=== PATIENT | male | born 1955 | race Caucasian/White ===

== ENCOUNTER 2016-10-08 04:12 | Emergency (ER) | payer BC ==
[2016-10-08 04:21] VITALS: TEMP 98
[2016-10-08] MEDS ORDERED: ORPHENADRINE 30 MG/ML 2 ML VIAL IVP STA (05:11)
--- NOTE | 2016-10-08 05:19 | ED ---
Back Pain HPI - General Chief Complaint: Back Pain/Injury Stated Complaint: Back Pain Time Seen by Provider: 10/08/16 05:09 Source: patient, EMS, RN notes reviewed Limitations: no limitations - History of Present Illness Initial Comments: Patient is a 52-year-old male presenting to the with chief complaint of lower back spasm. He arrives via EMS. They started a IV line on but did not give him any pain medication. He reports that he occur and last night when he was going from sitting to standing position. He states that he took some Motrin at home lasting in a somewhat subsided. He states he was able to rest comfortably. He states that the pain did not seem to bother him much today however when he went to bed and decided to get up to use the bathroom he stood up and had a twinge over his right side. He denies any pain radiate down his legs. He states that the pain feels better when he is laying flat. He states that he has chronic back pain and this is been going on for about 8 years. He follows up with Dr. Mensah. He states he's got an MRI scheduled for his lumbar spine in the somewhat near future. He denies any saddle anesthesias or peripheral paresthesias. He denies the pain radiating down his legs. He states the pain is positional and worse with lateral flexion of the right lumbar spine. Patient denies any recent fever or chills.Patient denies any recent fever, chills, shortness of breath, chest pain, abdominal pain, nausea vomiting, numbness or tingling, dysuria or hematuria, constipation or diarrhea, headaches or visual changes, or any other current symptoms - Related Data Home Medications Medication Instructions Recorded Confirmed Albuterol Inhaler [Ventolin Hfa 2 puff INHALATION RT-Q4H PRN 10/08/16 10/08/16 Inhaler] Budesonide/Formoterol Fumarate 2 puff INHALATION RT-BID 10/08/16 10/08/16 [Symbicort 160-4.5 Mcg Inhaler] Dextroamphetamine/Amphetamine 15 mg PO DAILY 10/08/16 10/08/16 [Adderall Xr] Furosemide [Lasix] 40 mg PO DAILY 10/08/16 10/08/16 Multivitamin [Men's Multi-Vitamin] 1 tab PO DAILY 10/08/16 10/08/16 Silodosin [Rapaflo] 8 mg PO DAILY 10/08/16 10/08/16 Previous Rx's Medication Instructions Recorded HYDROcodone/APAP 10-325MG [[place] 1 tab PO Q6H PRN #15 tab 10/08/16 10-325] predniSONE 50 mg PO DAILY #5 tab 10/08/16 Allergies Allergy/AdvReac Type Severity Reaction Status Date / Time doxycycline Allergy Rash/Hives Verified 10/08/16 07:29 Review of Systems ROS Statement: Those systems with pertinent positive or pertinent negative responses have been documented in the HPI. ROS Other: All systems not noted in ROS Statement are negative. Past Medical History Past Medical History: Asthma Additional Past Medical History / Comment(s): hydrocephalus, syringlomylea History of Any Multi-Drug Resistant Organisms: None Reported Additional Past Surgical History / Comment(s): Bilaretal hip replacements Smoking Status: Never smoker Past Alcohol Use History: Rare Past Drug Use History: None Reported General Exam - General Exam Comments Initial Comments: Patient is a pleasant 60-year-old male. He does not appear to be in any acute distress. Limitations: no limitations General appearance: alert, in no apparent distress Head exam: Present: atraumatic, normocephalic, normal inspection Eye exam: Present: normal appearance, PERRL, EOMI. Absent: scleral icterus, conjunctival injection, periorbital swelling ENT exam: Present: normal exam, mucous membranes moist Neck exam: Present: normal inspection. Absent: tenderness, meningismus, lymphadenopathy Respiratory exam: Present: normal lung sounds bilaterally. Absent: respiratory distress, wheezes, rales, rhonchi, stridor Cardiovascular Exam: Present: regular rate, normal rhythm, normal heart sounds. Absent: systolic murmur, diastolic murmur, rubs, gallop, clicks GI/Abdominal exam: Present: soft, normal bowel sounds. Absent: distended, tenderness, guarding, rebound, rigid Extremities exam: Present: normal inspection, full ROM, normal capillary refill. Absent: tenderness, pedal edema, joint swelling, calf tenderness Back exam: Present: normal inspection, full ROM, tenderness (Patient is tender over the right lumbar paraspinal muscles.), paraspinal tenderness. Absent: CVA tenderness (R), CVA tenderness (L), muscle spasm Neurological exam: Present: alert, oriented X3, CN II-XII intact Psychiatric exam: Present: normal affect, normal mood Skin exam: Present: warm, dry, intact, normal color. Absent: rash Course Vital Signs 10/08/16 10/08/16 04:15 06:22 Temperature 98.0 F Pulse Rate 100 88 Respiratory 30 H 20 Rate Blood Pressure 156/64 102/60 O2 Sat by Pulse 97 96 Oximetry Medical Decision Making - Medical Decision Making Patient is a 60 year old male with chronic back oain. Patient lives in assisteed living facilty. Xray shows no sever acute abnoralities, she does have melvina spondylolis at l1-l2.. He states that the pain is worse with proloned movement. He states he follows up with Dr. Mensah.Patient discharged with pain mediation and steroid and advised to follow up. Return parameters discussed. - Radiology Data Radiology results: report reviewed L1-L2 spondylolysis. No acute abnormality formed. Disposition Clinical Impression: Strain of lumbar region Disposition: HOME SELF-CARE Condition: Good Instructions: Acute Low Back Pain (ED) Additional Instructions: Patient instructed to take pain medications as prescribed. Follow-up with primary care provider return to the [facility] if any alarming signs or symptoms occur. Prescriptions: HYDROcodone/APAP 10-325MG [[place] 10-325] 1 tab PO Q6H PRN #15 tab PRN Reason: Pain predniSONE 50 mg PO DAILY #5 tab Referrals: Reno Vargas MD [Primary Care Provider] - 1-2 days Time of Disposition: 06:14
[2016-10-08] MEDS ORDERED: HYDROmorphone 1 MG/ML 1 ML SYRINGE IVP STA (05:55)
[2016-10-08] MEDS ORDERED: DEXAMETHASONE 2 MG TAB PO STA (05:55)
--- NOTE | 2016-10-08 06:12 | XR ---
EXAMINATION TYPE: XR lumbar spine 2 or 3V DATE OF EXAM: 10/08/2016 5:33 AM COMPARISON: NONE HISTORY: Low back pain TECHNIQUE: 3 views FINDINGS: The vertebra have normal alignment. There is mild spurring of the endplates. Posterior [place] ents are intact. There is no compression fracture. There is moderate anterior spurring at L1-2. Sacro iliac joints are normal. IMPRESSION: Spondylosis at L1-L2. No fracture.
[2016-10-08] MEDS ORDERED: DEXAMETHASONE SOD PHOSPHATE 10 MG/ML 1 ML VIAL IV STA ×2 (06:13→06:14)
[2016-10-08 06:43] VITALS: BP 102/60; PULSE 88; RESP 20
== END 2016-10-08 07:51 | disposition home or self-care (01) ==
LOC: EC 04:12
DX: S39.012A Strain of muscle, fascia and tendon of lower back, initial encounter (principal); X58.XXXA Exposure to other specified factors, initial encounter; Y92.003 Bedroom of unspecified non-institutional (private) residence as the place of occurrence of the external cause; Z79.899 Other long term (current) drug therapy; Z79.51 Long term (current) use of inhaled steroids; Z88.1 Allergy status to other antibiotic agents; J45.909 Unspecified asthma, uncomplicated; M43.06 Spondylolysis, lumbar region
CPT/HCPCS: 72100; 96374; 96375 ×2; 99284; J1100; J2360; J1170

== ENCOUNTER → 2016-12-25 | Outpatient (CLI) | payer BC ==
--- NOTE | 2016-12-25 22:05 | MR ---
EXAMINATION TYPE: MR lumbar spine wo con DATE OF EXAM: 12/25/2016 9:42 PM COMPARISON: No prior MRI at this institution. Lumbar spine x-ray October 08, 2016. HISTORY: OSTEOMYELITIS per order. Right thigh pain per patient. TECHNIQUE: Multiplanar, multisequence imaging of the lumbar spine is performed without IV contrast. O steomyelitis protocol. FINDINGS: Exam is ordered stat and thus prior exam at outside facility is not obtained for direct com parison. Exam is degraded by patient motion as patient is unable to hold still per order. Sagittal im ages of the lumbar spine show mild height loss involving superior anterior L1 vertebral body level . There is levoconvex scoliosis centered in the upper lumbar spine redemonstrated. There is multilevel disc desiccation identified. There is fairly moderate disc space narrowing at L3-L4 and L5-S1 levels. Multilevel small posterior disc herniations are seen on sagittal images The conus medullaris is nor mal in position and signal in the mid L1 vertebral body level. There is heterogeneous diminished T1 a nd increased T2 signal involving the inferior half of L1 vertebra and superior half of L2 vertebral a s well as L1-L2 disc space in which active osteomyelitis cannot be excluded. IV contrast not seen to assess for enhancement. Axial images show the T12-L1 level to appear within normal limits. Axial images at L1-L2 level show moderate broad disc bulge effacing anterior thecal sac with mild/mod erate facet degenerative changes limits placement hypertrophy effacing posterior lateral thecal sac o n axial image 25. There is fairly moderate right-sided neural foraminal narrowing at this level ident ified. Left-sided neural foramen is patent. Axial images at L2-L3 level show broad disc bulge effacing anterior thecal sac on axial image 20. The re is mild bilateral anterior inferior neural foraminal narrowing seen. Axial images at L3-L4 level show mild to moderate broad disc bulge effacing anterior thecal sac and c ausing mild to moderate right and mild left-sided neural foraminal narrowing. Axial images at L4-L5 level show moderate broad disc bulge effacing anterior thecal sac on axial imag e 10. There is moderate right and mild to moderate left-sided neural foraminal narrowing. There is en croachment along inferior margin of right L4 nerve seen on sagittal image 14. Mild to moderate facet degenerative changes bilaterally are seen at this level. Axial images at L5-S1 level show moderate facet degenerative changes bilaterally. There is mild broad disc bulge with left foraminal disc protrusion component on axial image 4. Bilateral neural foramina remain patent. There is partial visualization of large round T2 hyperintense lesion left kidney on axial image 19 castrejon ggestive of simple appearing cyst measuring at least 5.6 cm anterior posterior diameter. IMPRESSION: Persistent abnormal signal centered at L1-L2 vertebra with height loss anterior superior L2 endplate in which residual acute osteomyelitis cannot be excluded. There is levoconvex scoliosis o f multilevel degenerative changes in the lumbar spine as detailed above. There is encroachment on rig ht L4 nerve at L4-L5 level due to eccentric disc herniation noted.
== END | disposition home or self-care (01) ==
LOC: RADMRIMAIN 20:53
PROVIDERS: ATTEND Nurse Practitioner Adult Health
DX: M51.26 Other intervertebral disc displacement, lumbar region (principal); M47.816 Spondylosis without myelopathy or radiculopathy, lumbar region; M41.86 Other forms of scoliosis, lumbar region; R93.7 Abnormal findings on diagnostic imaging of other parts of musculoskeletal system
CPT/HCPCS: 72148

== ENCOUNTER 2017-05-31 12:45 | Inpatient (IN) | payer MEDICARE, BC ==
[2017-05-31 14:39] VITALS: BMI 31.8
[2017-05-31] MEDS ORDERED: ALBUTEROL NEBULIZED 2.5 MG/3 ML INHALATION PRN (17:53)
[2017-05-31] MEDS ORDERED: CLOTRIMAZOLE 1% CREAM 15 GM TUBE TOPICAL PRN (17:53)
[2017-05-31] MEDS: ACETAMINOPHEN TAB 325 MG TAB PO PRN (18:17)
[2017-05-31 19:27] LABS: Amorphous Sediment,Urine Occasional /hpf; Appearance,Urine Clear (Clear); Bilirubin,Urine Negative (Negative); Calcium Oxalate Crystals,Urine Occasional /hpf; Glucose,Urine (UA) Negative (Negative); Ketones,Urine Negative (Negative); Leukocyte Esterase,Urine Negative (Negative); Mucus,Urine Occasional /hpf; Nitrite,Urine Negative (Negative); Particle Count 2980; Protein,Urine Trace (Negative); RBC,Urine 4 /hpf (0-5); Specific Gravity,Urine 1.017 (1.001-1.035); Squamous Epithelial Cell,Urine <1 /hpf (0-4); UA Billing (MACRO vs. MICRO) MICRO; Urobilinogen,Urine <2.0 mg/dL (<2.0); WBC,Urine 2 /hpf (0-5)
--- NOTE | 2017-05-31 19:36 | XR ---
EXAMINATION TYPE: XR chest 2V DATE OF EXAM: 05/31/2017 COMPARISON: Chest x-ray July 16, 2016. HISTORY: Weakness and shortness of breath. TECHNIQUE: Frontal and lateral views of the chest are obtained. FINDINGS: There is redemonstration of right-sided VA shunt catheter. Elevated left hemidiaphragm is r edemonstrated. There is no focal air space opacity, pleural effusion, or pneumothorax seen. The card iac silhouette size is within normal limits. Underlying scoliosis is again seen. IMPRESSION: Chronic changes without acute pulmonary process. No significant change from prior.
[2017-05-31] MEDS: BACLOFEN 10 MG TAB PO SCH ×2 (20:34→23:20)
[2017-05-31] MEDS: MONTELUKAST 10 MG TAB PO SCH (20:34)
[2017-05-31] MEDS: LACTATED RINGERS 1,000 ML IV SCH (20:44)
--- NOTE | 2017-05-31 21:26 | P.HPIM ---
History of Present Illness H&P Date: 05/31/17 Chief Complaint: Fever chills History of presenting complaint: This is a 61-year-old patient who follows with Dr. Vargas. Patient has a history of hydrocephalus and cerebral 1 year. Also got muscle spasms. She known to have lumbar discitis/osteomyelitis 2 episodes and did receive course of antibiotics. On one episode he went out to [facility] and Dr. Castaneda cleaned out the discitis. Patient subsequently went selective then to [facility]. Patient had been doing well at home, yet to use every chills and no fever recorded 101.4 at home. Denied any urinary symptoms. Denied any diarrhea. Denied any respiratory symptoms. Hence patient presented to the Dr. Vargas's office for from that he was directly admitted here. Patient sister is at the the bedside. GEN.: Tired, febrile with chills EYES: None HEENT: None NECK: None RESPIRATORY: Some decreased breath sounds CARDIOVASCULAR: None GASTROINTESTINAL: None GENITOURINARY: None MUSCULOSKELETAL: Pain in the lower back with cramping LYMPHATICS: None HEMATOLOGICAL: None PSYCHIATRY: None NEUROLOGICAL: None Past medical history: Hydrocephalus, syringomyelia, gait dysfunction, muscle spasm, discitis/ osteomyelitis of the lumbar spine Past surgical surgical history: Surgery, bilateral hip replacement Home medications: Reviewed in the electronic records ALLERGIES: Doxycycline VITAL SIGNS: 97 3, 87, 18, 122/77, 98% room air, patient reports a temperature 101.4 at home GENERAL: Well built sitting up tired. EYES: Pupils equal. Conjunctiva james, some exophthalmosl. HEENT: External appearance of nose and ears normal, oral cavity grossly normal. NECK: JVD not raised; masses not palpable. HEART: First and second heart sounds are normal; no edema. LUNGS: Respiratory rate normal; clear to auscultation. ABDOMEN: Soft, nontender, liver spleen not palpable, no masses palpable. LYMPHATICS: No lymph nodes palpable in the axilla and neck. PSYCH: Alert and oriented x3; mood and affect normal. NEUROLOGICAL: Patient got clawing of both the hands. Some weakness in the legs. Investigations: Labs pending including blood culture Assessment: -Fever and chills and the patient only noted to possibly discitis/osteitis -Chronic hydrocodone as -Chronic syringomyelia Plan: We'll send a vision CBC CMP. Blood cultures. UA. Infectious disease will be consulted. Care was discussed with the patient and sister at the bedside Past Medical History Past Medical History: Asthma Additional Past Medical History / Comment(s): hydrocephalus, syringlomylea, BACK PAIN History of Any Multi-Drug Resistant Organisms: None Reported Past Surgical History: Back Surgery Additional Past Surgical History / Comment(s): Bilaretal hip replacements Past Anesthesia/Blood Transfusion Reactions: No Reported Reaction Past Psychological History: No Psychological Hx Reported Smoking Status: Never smoker Past Alcohol Use History: Rare Past Drug Use History: None Reported - Past Family History Father Additional Family Medical History / Comment(s): FATHER OF BONE CANCER AT AGE OF 82 Mother Family Medical History: Dementia Additional Family Medical History / Comment(s): AT AGE 83 Medications and Allergies Home Medications Medication Instructions Recorded Confirmed Type Albuterol Inhaler [Ventolin Hfa 2 puff INHALATION RT-Q4H PRN 10/08/16 05/31/17 History Inhaler] Budesonide/Formoterol Fumarate 2 puff INHALATION RT-BID 10/08/16 05/31/17 History [Symbicort 160-4.5 Mcg Inhaler] Silodosin [Rapaflo] 8 mg PO HS 10/08/16 05/31/17 History Baclofen [Lioresal] 10 mg PO TID 05/31/17 05/31/17 History Ketoconazole 2% Cream [Nizoral 2%] 1 applic TOPICAL DAILY PRN 05/31/17 05/31/17 History Montelukast [Singulair] 10 mg PO QAM 05/31/17 05/31/17 History Multivitamins, Thera [Multivitamin 1 tab PO DAILY 05/31/17 05/31/17 History (formulary)] Allergies Allergy/AdvReac Type Severity Reaction Status Date / Time doxycycline Allergy Rash/Hives Verified 05/31/17 15:06
[2017-05-31 22:07] LABS: ALT 53 U/L (21-72); AST 30 U/L (17-59); Alkaline Phosphatase 104 U/L (38-126); Anion Gap 10 mmol/L; Blood Urea Nitrogen 18 mg/dL (9-20); Carbon Dioxide 22 mmol/L (22-30); Chloride 107 mmol/L (98-107); Glucose 135 mg/dL (74-99); Non-African American GFR(MDRD) >60 (>60 ml/min/1.73 sqM); Potassium 3.8 mmol/L (3.5-5.1); Sodium 139 mmol/L (137-145); Total Bilirubin 0.7 mg/dL (0.2-1.3); Total Protein 7.3 g/dL (6.3-8.2)
[2017-05-31 22:10] LABS: Basophils % (A) 0 %; CH 28.6; Eosinophils % (A) 0 %; HCT 29.6 % (39.0-53.0); HDW 3.52; HGB 10.2 gm/dL (13.0-17.5); Luc # (Auto) 0.22; Luc % (Auto) 2; Lymphocytes # (A) 1.5 k/uL (1.0-4.8); Lymphocytes % (A) 14 %; MCHC 34.4 g/dL (31.0-37.0); Mean Platelet Volume 6.6; Monocytes # (A) 0.4 k/uL (0-1.0); Monocytes % (A) 4 %; Neutrophils # (A) 8.2 k/uL (1.3-7.7); Neutrophils % (A) 79 %; Poikilocytosis Slight; RBC 3.51 m/uL (4.30-5.90); RDW 13.1 % (11.5-15.5); WBC 10.4 k/uL (3.8-10.6); WBC (Perox) 10.45
[2017-05-31 22:12] LABS: MCV 84.3 fL (80.0-100.0)
[2017-05-31] MEDS: SYMBICORT 160-4.5 MCG INHALER INHALATION SCH (22:16)
[2017-06-01] MEDS: ACETAMINOPHEN TAB 325 MG TAB PO PRN ×4 (00:06→22:26)
[2017-06-01] MEDS: LACTATED RINGERS 1,000 ML IV SCH ×2 (04:11→18:01)
[2017-06-01 06:32] LABS: Appearance,Urine Clear (Clear); Bilirubin,Urine Negative (Negative); Glucose,Urine (UA) Negative (Negative); Ketones,Urine Negative (Negative); Leukocyte Esterase,Urine Negative (Negative); Mucus,Urine Rare /hpf; Nitrite,Urine Negative (Negative); Particle Count 2154; Protein,Urine Trace (Negative); RBC,Urine 9 /hpf (0-5); Specific Gravity,Urine 1.015 (1.001-1.035); Squamous Epithelial Cell,Urine <1 /hpf (0-4); UA Billing (MACRO vs. MICRO) MICRO; Urobilinogen,Urine <2.0 mg/dL (<2.0); WBC,Urine 1 /hpf (0-5)
[2017-06-01] MEDS ORDERED: IV VANCOMYCIN PER PHARMACY 1 EACH MISC MISCELLANE PRN (07:14)
[2017-06-01] MEDS: SYMBICORT 160-4.5 MCG INHALER INHALATION SCH ×2 (07:35→20:05)
[2017-06-01] MEDS: BACLOFEN 10 MG TAB PO SCH ×3 (07:40→22:26)
[2017-06-01] MEDS: MONTELUKAST 10 MG TAB PO SCH (07:40)
[2017-06-01] MEDS ORDERED: IV VANCOMYCIN PER PHARMACY 1 EACH MISC MISCELLANE SCH (09:00)
[2017-06-01] MEDS: MULTIVITAMINS, THERA 1 EACH TAB PO SCH (12:01)
[2017-06-01] MEDS: VANCOMYCIN 1,750 MG in SODIUM CHLORIDE 0.9% 250 ML IVPB SCH ×2 (12:01→22:37)
[2017-06-01] MEDS: AMPICILLIN 2,000 MG in SODIUM CHLORIDE 0.9% 100 ML IVPB SCH ×2 (18:00→21:56)
--- NOTE | 2017-06-01 19:50 | P.PN ---
<EstradaMarc - Last Filed: 06/01/17 20:17> Progress Note - Text Attending note. Date of service-06/01/2017 This patient was seen and examined by me . Discussed the patient with my nurse practitioner Ms. Alex. Fever spikes are present. Blood cultures coming back positive. ID has ordered the MRI. On examination: Lungs-clear, cardio vascular first seconds are normal Investigations: Blood cultures growing gram positive cocci in chains Assessment and plan: Sepsis picture with gram-positive cocci in chains with a prior history of discitis Chronic hydrocephalus Chronic syringomyelia Patient is on IV Unasyn and vancomycin per ID. Follow along with ID <AbiGilma Gabriele - Last Filed: 06/01/17 21:13> Progress Note - Text DATE OF SERVICE: 06/01/2017 PRESENTING COMPLAINT: Fever and chills HISTORY OF PRESENT ILLNESS: 61-year-old patient who has a, located medical course had lumbar discitis/ osteomyelitis 2 episodes received antibiotics. Went to an outside hospital and had the discitis cleared out. Went to [facility] for rehabilitation. Was doing well at home however developed chills and fever of 101.4 at home. Was seen by PCP and was sent directly to the hospital with concerns for sepsis. INTERVAL HISTORY: 06/01/2017: Patient seen in follow-up, sitting up in a chair at the bedside no acute complaints. Afebrile overnight, tolerating his diet eating 100% of his meal, ambulatory with a walker in the room, with assistance. REVIEW OF SYSTEMS: Done for constitutional ,cardiovascular, GI, pulmonary with relevant findings as above. CURRENT MEDICATIONS Ampicillin, baclofen, Symbicort, clotrimazole, Singulair, Flomax. Vancomycin PHYSICAL EXAM VITAL SIGNS: Temperature 97.3, pulse 82, respiratory rate 18, blood pressure 125/76, oxygen saturation 99% GENERAL APPEARANCE: Sitting up in a chair at bedside, not in distress. EYES: Pupils equal. Conjunctiva normal. NECK: JVD not raised. Mass not palpable. RESPIRATORY: Respiratory effort normal. Lungs clear to auscultation. CARDIOVASCULAR: First and second sounds normal. No edema. ABDOMEN: Soft. Liver and spleen not palpable. No tenderness. No mass palpable. PSYCHIATRY: Alert and oriented x3. Mood and affect normal. NEUROLOGICAL: Clawing of bilateral hands, mild weakness in the legs INVESTIGATIONS: None new Blood cultures positive for gram positive cocci in clusters Urine cultures pending ASSESSMENT: -Fever and chills and the patient only noted to possibly discitis/osteitis -Chronic hydrocephalus -Chronic syringomyelia PLAN: Await input from infectious disease, continue current IV antibiotic course, monitor labs await cultures results and sensitivities Discussed current plan of care with patient and family at the bedside here in agreement. We will continue to follow closely. LITERARY WRITER statement: Patient was seen and examined by nurse practitioner Gilma Alex and all elements of the case discussed with attending Dr. Dorado
[2017-06-01] MEDS: TAMSULOSIN 0.4 MG CAP.ER.24H PO SCH (22:26)
[2017-06-02] MEDS: AMPICILLIN 2,000 MG in SODIUM CHLORIDE 0.9% 100 ML IVPB SCH ×6 (01:48→19:58)
[2017-06-02] MEDS: LACTATED RINGERS 1,000 ML IV SCH ×3 (01:49→19:59)
--- NOTE | 2017-06-02 07:49 | CONS ---
CONSULTATION DATE OF CONSULTATION: 06/01/2017. REASON FOR CONSULTATION: Bacteremia. HISTORY OF PRESENT ILLNESS: The patient is a 61-year-old, with a past medical history significant for lumbar spine diskitis times two. He did have an episode back in September of 2016 and was treated with a 8 week course of IV antibiotic therapy with ampicillin and different antibiotic, the patient did not remember the name. The patient did have another episode back in January of 2017 at a similar spot for which the patient was transferred down to [place] to be evaluated by Dr. Castaneda. Apparently the patient did have a decompression of the spine. Culture positive for enterococcus. The patient treated with 8 week course of IV antibiotic therapy including ampicillin and different antibiotic which he is not sure about the name. The patient said he finishes antibiotic by the end of the March. Apparently the patient did have an outpatient MRI done around March with looking at the report did show evidence of L1-2 diskitis with some progression of the endplate erosion but no abscess. However the patient stated that he was told the infection is all healed up and he does not need any further antibiotic therapy. Since then, the patient has been running a fever off and on. However it is not a persistent fever which lasts for a day or tow and then will go away. Besides the fever, the patient denies having any URI symptoms. Denies any chest pain, shortness of breath. No cough. No abdominal pain. Denies having pain in the back area. No burning frequency of urine. No abdominal pain. The patient has been admitted directly to the hospital for further workup of this fever and the patient did have blood cultures obtained which came back positive. Hence ID was consulted for further recommendation regarding antibiotic therapy. REVIEW OF SYSTEMS: Constitutional positive for weakness and fever. Eyes no complaint. ENT no complaint. Respiratory no complaint. Cardiovascular no complaint. Genitourinary: No complaint. Gastrointestinal: No complaint. Musculoskeletal: No complaint. Integumentary: No complaint. Psychological: No complaint. Endocrine: No complaint. Neurological: No complaint. PAST MEDICAL HISTORY: Hydrocephalus, gait dysfunction, L1, L2 diskitis with Enterococcus times two. PAST SURGICAL HISTORY: Bilateral hip replacement. Lumbar surgery for the diskitis. SOCIAL HISTORY: Denies smoking, drinking, drug use. FAMILY HISTORY: No pertinent findings were noted. ALLERGIES: ALLERGY TO DOXYCYCLINE. MEDICATIONS: Currently include the patient is on: 1. Tylenol. 2. Ventolin. 3. Baclofen. 4. Symbicort. 5. Lactated ringers. 6. Singulair. 7. Theragran. 8. Flomax. 9. Vancomycin started this morning. EXAMINATION: Blood pressure is 126/84 with a pulse of 92, temperature 101.6. He is 98% on room air. General description is a middle aged male up in the chair in no distress. No tachypnea or accessory muscles for respiration use. HEENT: Shows pallor, no scleral icterus. Oral mucosa membranes dry. Neck trachea is central. No thyromegaly. Lungs unlabored breathing. Clear to auscultation anteriorly. No wheeze or crackle. Heart is S1, S2. Regular rate and rhythm. ABDOMEN: Soft, no tenderness. No guarding. No rigidity. Extremities are no edema of the feet. Examination the lumbar spine area no swelling, redness or any tenderness was noted. Neurological patient is awake, alert, oriented times three. Mood and affect normal. LABS: Hemoglobin is 10.1, white count 10.4 with a BUN of 18, creatinine 0.80. Electrolytes have been normal. Liver enzymes have been normal. Urine has been negative. Blood culture with gram-positive cocci in chains. IMPRESSION AND PLAN: The patient admitted to the hospital with a fever with evidence of gram-positive bacteremia with chains likely representing streptococcus in a patient who did apparently have lumbar L1-2 diskitis times two with Enterococcus more likely the same pathogen. PLAN: 1. We will add ampicillin 2 gm q.4h to his vancomycin regimen while waiting for the final ID of this pathogen. 2. Blood culture has been repeated on admission bacteremia. 3. We will obtain MRI of the lumbosacral spine to make sure of the diskitis and no abscess formation that may need to be drained further. Thank you for this consultation. We will follow the patient along with you. Dr. Morris will be back on Friday to who the patient will be signed out. MMODL / IJN: [id number] /
[2017-06-02 08:09] LABS: Basophils % (A) 0 %; CH 29.4; CHCM 34.9; Eosinophils # (A) 0.1 k/uL (0-0.7); Eosinophils % (A) 1 %; HCT 29.2 % (39.0-53.0); HDW 3.58; HGB 10.1 gm/dL (13.0-17.5); Luc % (Auto) 4; Lymphocytes # (A) 1.4 k/uL (1.0-4.8); Lymphocytes % (A) 17 %; MCH 29.1 pg (25.0-35.0); MCHC 34.4 g/dL (31.0-37.0); MCV 84.6 fL (80.0-100.0); Mean Platelet Volume 6.7; Monocytes # (A) 0.4 k/uL (0-1.0); Monocytes % (A) 5 %; Neutrophils % (A) 73 %; Poikilocytosis Slight; RBC 3.46 m/uL (4.30-5.90); RDW 13.9 % (11.5-15.5); WBC 8.2 k/uL (3.8-10.6)
[2017-06-02 08:22] LABS: Anion Gap 6 mmol/L; Blood Urea Nitrogen 14 mg/dL (9-20); Calcium 8.7 mg/dL (8.4-10.2); Carbon Dioxide 26 mmol/L (22-30); Chloride 109 mmol/L (98-107); Glucose 91 mg/dL (74-99); Non-African American GFR(MDRD) >60 (>60 ml/min/1.73 sqM); Sodium 141 mmol/L (137-145)
[2017-06-02] MEDS: SYMBICORT 160-4.5 MCG INHALER INHALATION SCH ×2 (08:33→19:30)
[2017-06-02] MEDS: BACLOFEN 10 MG TAB PO SCH ×3 (09:21→21:31)
[2017-06-02] MEDS: ACETAMINOPHEN TAB 325 MG TAB PO PRN (09:21)
[2017-06-02] MEDS: MONTELUKAST 10 MG TAB PO SCH (09:21)
[2017-06-02] MEDS: VANCOMYCIN 1,750 MG in SODIUM CHLORIDE 0.9% 250 ML IVPB SCH ×2 (11:16→21:31)
[2017-06-02] MEDS: MULTIVITAMINS, THERA 1 EACH TAB PO SCH (13:00)
--- NOTE | 2017-06-02 19:07 | PN ---
PROGRESS NOTE DATE OF SERVICE: 06/02/2017. REASON FOR FOLLOW UP: Enterococcus bacteremia, source of likely diskitis. INTERVAL HISTORY: The patient overall fever pattern has improved. Afebrile this morning. Did have a fever 101.6 last evening. The patient denies chest pain, shortness of breath. No cough. No abdominal pain. No significant back pain. No diarrhea. EXAMINATION: Blood pressure 108/66, pulse 75, temperature 97.1, T-max 101.6. He is 96% on room air. General description is a middle-aged male, lying in bed, in no distress. Respiratory system unlabored breathing. Clear to auscultation anteriorly. Heart S1, S2. Regular rate and rhythm. Abdomen soft, no tenderness. LAB: Hemoglobin is 10.1, white count 8.2 with BUN 14, creatinine 0.94. Blood cultures with group D enterococcus. DIAGNOSTIC IMPRESSION AND PLAN: Patient with Enterococcus bacteremia in a patient who did have history of L1-2 diskitis likely the same source as MRI was done on 04/21/2017 at [facility] was abnormal. Patient currently on Ampicillin and vancomycin that will be continued. We will repeat blood cultures again today. Did document clear source bacteremia, await MRI to be done tomorrow. The patient will be seen by Dr. Morris as of tomorrow to which the patient is known. Plan of care was discussed with the admitting physician. VÍCTOR / KAZ: [id number] /
[2017-06-02] MEDS: TAMSULOSIN 0.4 MG CAP.ER.24H PO SCH (21:31)
--- NOTE | 2017-06-02 22:13 | PN ---
PROGRESS NOTE DATE OF SERVICE: June 02, 2017. PRESENTING COMPLAINT: Fever and chills. INTERVAL HISTORY: This patient with known lumbar diskitis with two episodes, history of hydrocephalus and syringomyelia, presented with fevers and chills. Blood cultures now growing enterococcus. Patient on IV ampicillin and vancomycin and is felt to be getting the diskitis flaring up again. The patient tolerating some diet. REVIEW OF SYMPTOMS: Review of systems done for constitutional, cardiovascular, GI, pulmonary, relevant findings as above. MEDICATIONS: Current medications reviewed that include IV ampicillin and IV vancomycin. EXAMINATION: T-max 101.6. Currently afebrile. Pulse 77 per minute, blood pressure 105/67, pulse ox 98% room air. GENERAL: Lying in bed, comfortable in the bed. Eyes pupils equal. Conjunctivae normal. Neck JVD not raised. Mass not palpable. Respiratory system: Effort normal. Lungs fair air entry. Cardiovascular 1st and 2nd sounds. No edema. ABDOMEN: Soft, nontender. Liver and spleen not palpable. Psychiatry: Alert and oriented times three. Mood and affect normal. Neurological: Wasting of the the small muscles of the hands and in the forehead. INVESTIGATIONS: White count 8.2, hemoglobin 10.1, potassium 4.0. Blood cultures growing group B enterococcus. Last set being positive from 06/01/17. ASSESSMENT: 1. Fever and chills causing sepsis possibly from recurrent diskitis. 2. Chronic hydrocephalus. 3. Chronic syringomyelia. 4. Normocytic anemia. PLAN: Continue current antibiotics. Care was discussed with the patient. The patient may need a protracted course of antibiotics. It may be known that again Dr. Castaneda had gone on and scraped that area where he did two prior episodes. Patient of course is a bit disillusioned about the whole thing. We will go ahead and order a TIAN to make sure there is no infective endocarditis. MMODL / IJN: [id number] /
[2017-06-03] MEDS: AMPICILLIN 2,000 MG in SODIUM CHLORIDE 0.9% 100 ML IVPB SCH ×6 (00:18→21:10)
[2017-06-03] MEDS ORDERED: VANCOMYCIN TROUGH DUE 1 EACH MISC MISCELLANE ONE (08:00)
[2017-06-03] MEDS: SYMBICORT 160-4.5 MCG INHALER INHALATION SCH ×2 (08:14→19:10)
[2017-06-03] MEDS: ACETAMINOPHEN TAB 325 MG TAB PO PRN ×2 (08:20→21:10)
[2017-06-03] MEDS: LACTATED RINGERS 1,000 ML IV SCH ×2 (08:25→15:36)
[2017-06-03] MEDS: BACLOFEN 10 MG TAB PO SCH ×3 (08:25→21:10)
[2017-06-03] MEDS: MULTIVITAMINS, THERA 1 EACH TAB PO SCH (08:26)
[2017-06-03] MEDS: MONTELUKAST 10 MG TAB PO SCH (08:33)
--- NOTE | 2017-06-03 10:56 | MR ---
"EXAMINATION TYPE: MR lumbar spine wo/w con DATE OF EXAM: 06/03/2017 COMPARISON: 12/25/2016 HISTORY: L1-2 discitis, ?abscess TECHNIQUE: T1 and T2 axial and sagittal images of the lumbar spine are submitted. FINDINGS: Scoliotic curvature of the spinal multilevel degenerative disc disease noted. Simple appear ing renal cyst At T12-L1 no disc herniation or canal stenosis. Facet arthropathy but no foraminal encroachment. At L1-2 there is persistent abnormal signal within the disc space with enhancement compatible with di scitis. There is some endplate erosion of L2 compatible with osteomyelitis which appears fairly stabl e. No epidural enhancement. Previous surgery noted posteriorly. No paraspinal sizable abscess. There appears to be some enhancement along the right paraspinal region on the right measuring approximately 1 x 1.5 cm which may represent residual or presence of poorly defined small area of phlegmon. Additi onally, cannot exclude a 3 mm area of enhancement and infection along the right margin of the spinal canal. Correlate clinically. At L2-3 there is no disc herniation or canal stenosis. There is degenerative disc disease and circumf erential disc bulging with mild foraminal encroachment but no canal stenosis. At L3-4 there is degenerative disc disease with circumferential disc bulging and mild bilateral marisa inal encroachment. No focal herniation or canal stenosis. Within the paraspinal soft tissues there is a fat signal measuring 1 cm compatible with a small lipoma. At L4-5 there is degenerative disc disease and moderate broad-based disc bulging with mild canal sten osis. Facet hypertrophy is seen. There is mild to moderate left foraminal encroachment and moderate r ight-sided foraminal encroachment. At L5-S1 there is facet arthropathy but no disc herniation or canal stenosis. Neural foramina are pat ent. IMPRESSION: 1. Findings at L1-L2 compatible with discitis persistent changes of osteomyelitis. Along the right pa raspinal line there is an area of abnormal signal the L1-2 level which does appear to demonstrate melvina e enhancement postcontrast. Definable abscess although a localized area of phlegmon in the differenti al diagnosis. Additionally, cannot exclude a 3 mm area of enhancement and infection or extension phle gmon along the the right margin of the spinal canal and thecal sac. Correlate clinically. A [place] message has been communicated to Augusto Nguyen via the [address] | Critical Result syst em on 06/03/2017 10:50 AM, Message ID [id number]."
[2017-06-03] MEDS: HYDROcodone/APAP 5-325MG 1 EACH TAB PO PRN (11:27)
[2017-06-03] MEDS: VANCOMYCIN 1,750 MG in SODIUM CHLORIDE 0.9% 250 ML IVPB SCH ×2 (11:28→22:01)
--- NOTE | 2017-06-03 11:48 | ECHOF ---
Referral Reason:rule out endocarditis MEASUREMENTS -------- HEIGHT: 170.2 cm WEIGHT: 92.1 kg BP: 122/69 RVIDd: 2.8 cm (< 3.3) IVSd: 1.2 cm (0.6 - 1.1) LVIDd: 3.2 cm (3.9 - 5.3) LVPWd: 1.0 cm (0.6 - 1.1) EDV(Teich): 41 ml IVSs: 1.5 cm LVIDs: 2.0 cm LVPWs: 1.4 cm %IVS Thck: 34 % ESV(Teich): 13 ml EF(Teich): 67 % %FS: 36 % SV(Teich): 27 ml LA Diam: 3.6 cm (2.7 - 3.8) IVC: 1.8 cm LALs A4C: 4.4 cm LAAs A4C: 11.4 cm LAESV A-L A4C: 25 ml LAESV MOD A4C: 20 ml LALs A2C: 4.3 cm LAAs A2C: 11.4 cm LAESV A-L A2C: 26 ml LAESV MOD A2C: 24 ml LAESV(A-L): 26 ml LAESV Index (A-L): 12.53 ml/m Ao Diam: 3.2 cm (2.0 - 3.7) AV Cusp: 2.4 cm (1.5 - 2.6) MV EXCURSION: 13.970 mm (> 18.000) MV EF SLOPE: 63 mm/s (70 - 150) EPSS: 0.8 cm MV E Donovan: 0.80 m/s MV DecT: 197 ms MV Dec [place]: 4.1 m/s MV A Donovan: 0.89 m/s MV E/A Ratio: 0.91 MV PHT: 57 ms E/E': 10.16 E': 0.08 m/s AV Vmax: 0.95 m/s AV maxP.59 mmHg TR Vmax: 2.64 m/s TR maxP.85 mmHg RAP: 5.00 mmHg RVSP: 32.85 mmHg FINDINGS -------- Sinus rhythm. This was a technically adequate study. The left ventricular size is normal. There is borderline concentric left ventricular hypertrophy. Overall left ventricular systolic function is normal with, an EF between 60 - 65 %. The right ventricle is normal in size. Normal LA size by volume 22+/-6 ml/m2. The right atrium is normal in size. Aortic valve is trileaflet and is mildly thickened. The mitral valve is normal. No mitral regurgitation. Mild tricuspid regurgitation present. Right ventricular systolic pressure is normal at < 35 mmHg. There is no pulmonic regurgitation present. The aortic root size is normal. Normal inferior vena cava with normal inspiratory collapse consistent with estimated right atrial pressure of 5 mmHg. There is no pericardial effusion. CONCLUSIONS -------- 1. Sinus rhythm. 2. The mitral valve is normal. 3. No mitral regurgitation. 4. Mild tricuspid regurgitation present. 5. Right ventricular systolic pressure is normal at < 35 mmHg. 6. There is no pulmonic regurgitation present. 7. The aortic root size is normal. 8. Normal inferior vena cava with normal inspiratory collapse consistent with estimated right atrial pressure of 5 mmHg. 9. There is no pericardial effusion. 10. This was a technically adequate study. 11. The left ventricular size is normal. 12. There is borderline concentric left ventricular hypertrophy. 13. Overall left ventricular systolic function is normal with, an EF between 60 - 65 %. 14. The right ventricle is normal in size. 15. Normal LA size by volume 22+/-6 ml/m2. 16. The right atrium is normal in size. 17. Aortic valve is trileaflet and is mildly thickened. CULINARY ARTS TEACHER: Tracy Bee RDCS
--- NOTE | 2017-06-03 12:57 | P.CRDCN ---
History of Present Illness Consult date: 06/03/17 History of present illness: This is a 61-year-old male. Past medical history significant for asthma, hydrocephalus, back surgery with osteomyelitis 2. Patient presents with complaints of fever. We have been asked to see this patient in light of positive blood cultures and possible TIAN. The pt states he has had osteomyelitis twice prior to the lumbar spine s/p back surgery. He most recently underwent discectomy with Dr. Castaneda out of [place] to clean the infection and he has been on IV antibiotics for extended periods of time. He recently presented to his PCP with low grade fever and was found to have positive blood cultures with enterococcus. He also states he had a normal TIAN at [place] in January when he last had this infection. He denies any cardiac history. He has never seen a medicaid billing clerk as an outpatient for any reason. No EKG has been performed, we will order one at this time. He had an echocardiogram performed October 2016 that shows preserved left ventricular function with ejection [id number]%, mild aortic valve sclerosis, mild mitral regurgitation, mild tricuspid regurgitation, RVSP 36.21 mmHg. The patient denies night sweats or extreme rigors. He states his fevers at home only got up to around 100.4 at the highest. Review of Systems REVIEW OF SYSTEMS: Patient denies any chest discomfort. No shortness of breath. No diaphoresis. Denies headache, dizziness, blurred vision, double vision. No dyspnea on exertion. Patient denies any stomach discomfort. No nausea, vomiting. No hematochezia. No hematemesis. Denies any black stools or blood in his stools. No syncope. No palpitations. No cough. No recent fever or chills. No muscle weakness or numbness. Continues to complain of ongoing lower back pain. Past Medical History Past Medical History: Asthma Additional Past Medical History / Comment(s): hydrocephalus, syringlomylea, BACK PAIN History of Any Multi-Drug Resistant Organisms: None Reported Past Surgical History: Back Surgery Additional Past Surgical History / Comment(s): Bilaretal hip replacements Past Anesthesia/Blood Transfusion Reactions: No Reported Reaction Past Psychological History: No Psychological Hx Reported Smoking Status: Never smoker Past Alcohol Use History: Rare Past Drug Use History: None Reported - Past Family History Father Additional Family Medical History / Comment(s): FATHER OF BONE CANCER AT AGE OF 82 Mother Family Medical History: Dementia Additional Family Medical History / Comment(s): AT AGE 83 Medications and Allergies Home Medications Medication Instructions Recorded Confirmed Type Albuterol Inhaler [Ventolin Hfa 2 puff INHALATION RT-Q4H PRN 10/08/16 05/31/17 History Inhaler] Budesonide/Formoterol Fumarate 2 puff INHALATION RT-BID 10/08/16 05/31/17 History [Symbicort 160-4.5 Mcg Inhaler] Silodosin [Rapaflo] 8 mg PO HS 10/08/16 05/31/17 History Baclofen [Lioresal] 10 mg PO TID 05/31/17 05/31/17 History Ketoconazole 2% Cream [Nizoral 2%] 1 applic TOPICAL DAILY PRN 05/31/17 05/31/17 History Montelukast [Singulair] 10 mg PO QAM 05/31/17 05/31/17 History Multivitamins, Thera [Multivitamin 1 tab PO DAILY 05/31/17 05/31/17 History (formulary)] Allergies Allergy/AdvReac Type Severity Reaction Status Date / Time doxycycline Allergy Rash/Hives Verified 05/31/17 15:06 Physical Exam Vitals: Vital Signs Temp Pulse Resp BP Pulse Ox 06/03/17 07:00 98.7 F 77 16 122/69 94 L 06/02/17 23:00 97.2 F L 84 16 131/76 99 06/02/17 15:00 98.5 F 77 18 105/67 98 Intake and Output 06/02/17 06/03/17 06/03/17 22:59 06:59 14:59 Output Total 575 900 Balance -575 -900 Output: Urine 575 900 Other: Voiding Method Urinal Urinal Incontinent Incontinent # Voids 2 3 # Bowel Movements 0 0 GENERAL: This is a 61-year-old male in no apparent distress at the time of my examination. HEENT: Head is atraumatic, normocephalic. Pupils are equal, round. Exopthalmos. Sclerae anicteric. Conjunctivae are clear. Mucous membranes of the mouth are moist. Neck is supple. There is no jugular venous distention. No carotid bruit is heard. LUNGS: Clear to auscultation no wheezes, rales or rhonchi. No chest wall tenderness is noted on palpation or with deep breathing. HEART: Regular rate and rhythm without murmurs, rubs or gallops. S1 and S2 heard. ABDOMEN: Soft, nontender. Bowel sounds are heard. No organomegaly noted. EXTREMITIES: 2+ peripheral pulses with mild/trace evidence of peripheral edema and no calf tenderness noted. NEUROLOGIC: Patient is awake, alert and oriented x3. Results 06/02/17 07:10 06/02/17 07:10 Current Medications Generic Name Dose Route Start Last Admin Trade Name Freq PRN Reason Stop Dose Admin Acetaminophen 650 mg 05/31/17 17:54 06/03/17 08:20 Tylenol Tab PO 650 mg Q6HR PRN Administration Fever and/ or MILD Pain Hydrocodone Bitart/Acetaminophen 1 each 06/03/17 09:46 06/03/17 11:27 [place] 5-325 PO 1 each Q6HR PRN Administration MODERATE TO SEVERE Pain Albuterol Sulfate 2.5 mg 05/31/17 17:53 Ventolin Nebulized INHALATION RT-Q4H PRN Shortness Of Breath Baclofen 10 mg 05/31/17 18:00 06/03/17 08:25 Lioresal PO 10 mg TID IRAM Administration Budesonide/Formoterol Fumarate 2 puff 05/31/17 20:00 06/03/17 08:14 Symbicort 160-4.5 Mcg Inhaler INHALATION 2 puff RT-BID IRAM Administration Clotrimazole 1 applic 05/31/17 17:53 Lotrimin Cream TOPICAL DAILY PRN Facial Skin Irritation Lactated Ringer's 1,000 mls @ 100 mls/hr 05/31/17 17:15 06/03/17 08:25 Lactated Ringers IV 100 mls/hr .Q10H IRAM Administration Vancomycin HCl 1,750 mg/ 250 mls @ 125 mls/hr 06/01/17 09:00 06/03/17 11:28 Sodium Chloride IVPB 125 mls/hr Q12HR IRAM Administration Ampicillin Sodium 2,000 mg/ 100 mls @ 200 mls/hr 06/01/17 16:15 06/03/17 11: 29 Sodium Chloride IVPB 200 mls/hr Q4HR IRAM Administration Montelukast Sodium 10 mg 05/31/17 18:00 06/03/17 08:33 Singulair PO 10 mg QAM IRAM Administration Multivitamins 1 each 06/01/17 12:00 06/03/17 08:26 Theragran PO 1 each DAILY@1200 IRAM Administration Tamsulosin HCl 0.4 mg 06/01/17 21:00 06/02/17 21:31 Flomax PO 0.4 mg HS IRAM Administration Intake and Output 06/02/17 06/03/17 06/03/17 22:59 06:59 14:59 Output Total 575 900 Balance -575 -900 Output: Urine 575 900 Other: Voiding Method Urinal Urinal Incontinent Incontinent # Voids 2 3 # Bowel Movements 0 0 06/02/17 07:10 06/02/17 07:10 Assessment and Plan Plan: ASSESSMENT 1. Positive blood cultures with enterococcus faecalis, rule out endocarditis PLAN Obtain echocardiogram, schedule TIAN tomorrow morning with Dr. Fernandez. Pt to be NPO after midnight tonight. I have discussed the risks, benefits and alternative therapies for the above-mentioned procedure and for both sedation/ analgesia. The patient has indicated understanding and acceptance of the risks and procedures discussed. Nurse Practitioner note has been reviewed, I agree with a documented findings and plan of care. Patient was seen and examined.
--- NOTE | 2017-06-03 16:30 | P.PN ---
<AlethabarchetMalkaGilma A - Last Filed: 06/03/17 16:01> Progress Note - Text DATE OF SERVICE: 06/03/2017 PRESENTING COMPLAINT: Fever, chills HISTORY OF PRESENT ILLNESS: 61-year-old male history of hydrocephalus, lumbar discitis and osteomyelitis 2 episodes and received antibiotics. had discitis taking care of at [facility] and subsequently went to [facility]. was doing well on home developed chills and fever of 101.4 at home, presented to Dr. Vargas's office and from there was directly admitted. INTERVAL HISTORY: 06/03/2017: Patient lying in bed appears comfortable however does complain about a flareup of back pain today. Worse than the days previous IV antibiotics continue. REVIEW OF SYSTEMS: Done for constitutional ,cardiovascular, GI, pulmonary with relevant findings as above. CURRENT MEDICATIONS IV ampicillin, IV vancomycin PHYSICAL EXAM VITAL SIGNS: Temperature 98.7, pulse 77, respiratory rate 16, blood pressure 122/69, oxygen saturation 94% on room air. GENERAL APPEARANCE: Lying in bed, not in distress. EYES: Pupils equal. Conjunctiva normal. NECK: JVD not raised. Mass not palpable. RESPIRATORY: Respiratory effort normal. Lungs fair air entry on auscultation. CARDIOVASCULAR: First and second sounds normal. No edema. ABDOMEN: Soft. Liver and spleen not palpable. No tenderness. No mass palpable. PSYCHIATRY: Alert and oriented x3. Mood and affect normal. NEUROLOGICAL: Wasting of the small muscles of the hands and forehead INVESTIGATIONS: Hemoglobin 10.1, chloride 109 ASSESSMENT: -Fever and chills causing sepsis possibly from recurrent discitis, improving -Chronic hydrocephalus -Chronic syringomyelia -Normocytic anemia PLAN: Continue current antibiotics TIAN pending to ensure no infective endocarditis. Plan of care discussed with the patient at the bedside he is in agreement. We will continue to follow closely. FUEL INJECTION SERVICER statement: Patient was seen and examined by nurse practitioner Gilma Alex and all elements of the case discussed with attending Dr. Dorado <Marc Dorado - Last Filed: 06/03/17 17:56> Progress Note - Text Attending note. Date of service-06/03/2017 This patient was seen and examined by me . Discussed the patient with my nurse practitioner Ms. Alex. Admitted with fever chills. Positive blood cultures. Complaining of low back pain. On examination: Lungs are clear, cardio vascular first seconds are normal Investigations: MRI of the lumbar spine showing discitis and possible abscess Assessment and plan: (Acute discitis in the L1-L2 area with a concern about abscess causing sepsis on presentation. Fevers are coming down. Patient to have an MRI tomorrow. Continue with IV ampicillin. Repeat blood cultures ordered today. Care discussed with the patient. Discussed with Dr. Morris.
[2017-06-03 20:39] LABS: Glucose,Whole Blood 121 mg/dL (75-99)
[2017-06-03] MEDS: TAMSULOSIN 0.4 MG CAP.ER.24H PO SCH (21:10)
--- NOTE | 2017-06-03 23:04 | P.PN ---
Subjective Principal diagnosis: Enterococcal bacteremia 61-year-old male known to me from his hospitalizations this year which were related to enterococcus bacteremia and evidence of the discitis. The patient was treated with a course of antibiotic therapy. He had good resolution of his symptoms and that is severe back pain resolved. His inflammatory parameters also improved. However he never had complete resolution of his back pain. He completed a course of antibiotic therapy. Shortly thereafter he again developed significant pain as well as fever. He consequently was transferred to [facility] under the care of his neurosurgeon. He underwent a discectomy debridement the area. He was cared for outside of our community. Was apparently treated for a long course of antibiotic therapy. He had resolution of his elevated sed rate and CRP. In his antibiotic therapy was completed. Follow-up imaging studies were performed showing evidence of significant ongoing changes but there was of course surgical changes also. The patient was having some intermittent fevers that were not persistent. This was reported to the other providers. The patient however presents to our emergency center with fever chills and feeling poorly. He was found evidence of enterococcus bacteremia occurring again. Imaging to his spine is encouraging evidence of ongoing changes. However current MRI is being compared to an MRI that was prior to his recent surgical intervention. The patient had some back pain last night that does not resolve sitting upright eating his lunch. He is having no further fevers or chills. Still feels a bit weak and does not feel that his baseline. He remains concerned about the next step. Care is being assumed from coverage Dr. Nguyen. Objective - Vital Signs Vital signs: Vital Signs Temp 97.5 F L 06/03/17 14:53 Pulse 73 06/03/17 20:25 Resp 18 06/03/17 20:25 BP 119/64 06/03/17 14:53 Pulse Ox 96 06/03/17 14:53 Intake & Output 06/03/17 06/03/17 06/04/17 06:59 18:59 06:59 Intake Total 440 Output Total 1475 800 Balance -1475 -360 Intake: Oral 440 Output: Urine 1475 800 Other: Voiding Method Urinal Urinal Urinal Incontinent Incontinent Incontinent # Voids 3 1 # Bowel Movements 0 0 1 - Exam Pleasant 61-year-old gentleman who seems to be comfortable. It is noted has the history of the significant syringomyelocele. HEENT: Anicteric conjunctiva are pink and moist nasal mucosa grossly intact without significant lesions, there is no thrush. Exophthalmus without change Neck: The neck is supple without significant lymphadenopathy or thyromegaly. Lungs: Good bilateral air entry without significant crackles or wheezing. There is no significant bronchial sounds. There is no egophony or dullness. Heart: Regular rate and rhythm with an audible S1-S2, no S3 no S4. There is no significant murmur click or rub, PMI was nondisplaced. Abdomen: Positive bowel sounds soft and nontender without palpable masses or organomegaly. There was no guarding or rebound. Extremities: The upper extremities have excellent pulses they are symmetric, no significant petechiae or telangiectasia. No splinter hemorrhages were noted. The lower extremities are free from significant edema. The peripheral pulses were 2+ and symmetric. Neuro: Awake alert oriented to person place and time. There are no acute new gross focal sensory motor deficits. Patient was having some significant spasm to the right leg that is now well controlled with utilization of his baclofen. - Labs CBC & Chem 7: 06/02/17 07:10 06/02/17 07:10 Labs: Abnormal Lab Results - Last 24 Hours (Table) 06/03/17 Range/Units 20:35 POC Glucose (mg/dL) 121 H (75-99) mg/dL Microbiology - Last 24 Hours (Table) 06/01/17 07:45 Blood Culture Gram Stain - Final Blood Blood Culture - Final Enterococcus faecalis 05/31/17 17:28 Blood Culture Gram Stain - Final Blood Blood Culture - Final Enterococcus faecalis Laboratory Results WBC 8.2 k/uL (3.8-10.6) 06/02/17 07:10 RBC 3.46 m/uL (4.30-5.90) L 06/02/17 07:10 Hgb 10.1 gm/dL (13.0-17.5) L 06/02/17 07:10 Hct 29.2 % (39.0-53.0) L 06/02/17 07:10 MCV 84.6 fL (80.0-100.0) 06/02/17 07:10 MCH 29.1 pg (25.0-35.0) 06/02/17 07:10 MCHC 34.4 g/dL (31.0-37.0) 06/02/17 07:10 RDW 13.9 % (11.5-15.5) 06/02/17 07:10 Plt Count 251 k/uL (150-450) 06/02/17 07:10 Neutrophils % 73 % 06/02/17 07:10 Lymphocytes % 17 % 06/02/17 07:10 Monocytes % 5 % 06/02/17 07:10 Eosinophils % 1 % 06/02/17 07:10 Basophils % 0 % 06/02/17 07:10 Neutrophils # 6.0 k/uL (1.3-7.7) 06/02/17 07:10 Lymphocytes # 1.4 k/uL (1.0-4.8) 06/02/17 07:10 Monocytes # 0.4 k/uL (0-1.0) 06/02/17 07:10 Eosinophils # 0.1 k/uL (0-0.7) 06/02/17 07:10 Basophils # 0.0 k/uL (0-0.2) 06/02/17 07:10 Poikilocytosis Slight 06/02/17 07:10 Sodium 141 mmol/L (137-145) 06/02/17 07:10 Potassium 4.0 mmol/L (3.5-5.1) 06/02/17 07:10 Chloride 109 mmol/L (98-107) H 06/02/17 07:10 Carbon Dioxide 26 mmol/L (22-30) 06/02/17 07:10 Anion Gap 6 mmol/L 06/02/17 07:10 BUN 14 mg/dL (9-20) 06/02/17 07:10 Creatinine 0.94 mg/dL (0.66-1.25) 06/02/17 07:10 Est GFR (MDRD) Af Amer >60 (>60 ml/min/1.73 sqM) 06/02/17 07:10 Est GFR (MDRD) Non-Af >60 (>60 ml/min/1.73 sqM) 06/02/17 07:10 Glucose 91 mg/dL (74-99) 06/02/17 07:10 POC Glucose (mg/dL) 121 mg/dL (75-99) H 06/03/17 20:35 POC Glu [employer] Engineering Division Kalie Garcia 06/03/17 20:35 Calcium 8.7 mg/dL (8.4-10.2) 06/02/17 07:10 Total Bilirubin 0.7 mg/dL (0.2-1.3) 05/31/17 21:48 AST 30 U/L (17-59) 05/31/17 21:48 ALT 53 U/L (21-72) 05/31/17 21:48 Alkaline Phosphatase 104 U/L (38-126) 05/31/17 21:48 Total Protein 7.3 g/dL (6.3-8.2) 05/31/17 21:48 Albumin 3.0 g/dL (3.5-5.0) L 05/31/17 21:48 Urine Color Yellow 06/01/17 05:50 Urine Appearance Clear (Clear) 06/01/17 05:50 Urine pH 6.0 (5.0-8.0) 06/01/17 05:50 Ur Specific [place] 1.015 (1.001-1.035) 06/01/17 05:50 Urine Protein Trace (Negative) H 06/01/17 05:50 Urine Glucose (UA) Negative (Negative) 06/01/17 05:50 Urine Ketones Negative (Negative) 06/01/17 05:50 Urine Blood Small (Negative) H 06/01/17 05:50 Urine Nitrite Negative (Negative) 06/01/17 05:50 Urine Bilirubin Negative (Negative) 06/01/17 05:50 Urine Urobilinogen <2.0 mg/dL (<2.0) 06/01/17 05:50 Ur Leukocyte Esterase Negative (Negative) 06/01/17 05:50 Urine RBC 9 /hpf (0-5) H 06/01/17 05:50 Urine WBC 1 /hpf (0-5) 06/01/17 05:50 Ur Squamous Epith Cells <1 /hpf (0-4) 06/01/17 05:50 Calcium Oxalate Crystal Occasional /hpf (None) H 05/31/17 17:50 Amorphous Sediment Occasional /hpf (None) H 05/31/17 17:50 Hyaline Casts 1 /lpf (0-2) 05/31/17 17:50 Urine Mucus Rare /hpf (None) H 06/01/17 05:50 Vancomycin Trough 18.9 ug/mL 06/03/17 08:38 Microbiology 06/01/17 07:45 Blood Blood Culture Gram Stain - Final 06/01/17 07:45 Blood Blood Culture - Final Enterococcus faecalis 05/31/17 17:28 Blood Blood Culture Gram Stain - Final 05/31/17 17:28 Blood Blood Culture - Final Enterococcus faecalis 05/31/17 17:50 Urine,Voided Urine Culture - Final 06/01/17 07:45 Blood Blood Culture - Final 05/31/17 17:28 Blood Blood Culture - Final Assessment and Plan (1) Bacteremia due to Enterococcus Narrative/Plan: 61-year-old male presents to Hospital with fever and not feeling well. Workup revealed evidence of the positive blood cultures again with enterococcus. His complex history the patient has been admitted and receiving intravenous antibiotic therapy with ampicillin and vancomycin. Blood cultures are available showing evidence of the enterococcus that is ampicillin susceptible. Tonsillectomy vancomycin will be discontinued. Ceftriaxone will be added to the ampicillin percentages to get activity with lower toxicity and long-term gentamicin therapy. TIAN will be again performed pressure there is no underlying endocarditis. It appears that at the outside hospital MRI was performed in March. Asking her radiologist compare her current MRI to that MRI. May need further imaging studies such as a indium scan to ensure there is no other pockets of infection that have not been noticed up to this point in time. Follow blood cultures are indium process. He will be monitored. Status: Acute (2) Discitis of lumbosacral region Status: Acute
[2017-06-04] MEDS: cefTRIAXone 2,000 MG in SODIUM CHLORIDE 0.9% 100 ML IVPB SCH (00:12)
[2017-06-04] MEDS: AMPICILLIN 2,000 MG in SODIUM CHLORIDE 0.9% 100 ML IVPB SCH ×6 (01:36→20:22)
[2017-06-04] MEDS: LACTATED RINGERS 1,000 ML IV SCH ×2 (01:37→08:30)
[2017-06-04] MEDS: BACLOFEN 10 MG TAB PO SCH ×2 (08:30→15:20)
[2017-06-04] MEDS: MONTELUKAST 10 MG TAB PO SCH (08:30)
[2017-06-04] MEDS: SYMBICORT 160-4.5 MCG INHALER INHALATION SCH ×2 (08:51→20:48)
[2017-06-04] MEDS ORDERED: fentaNYL (PF) 50 MCG/ML 2 ML AMP ONE (09:38)
[2017-06-04] MEDS ORDERED: MIDAZOLAM 2 MG/2 ML VIAL ONE (09:39)
[2017-06-04] MEDS: BENZOCAINE SPRAY 1 SPRAY CAN MUCOUS MEM ONE ×2 (09:53→10:03)
[2017-06-04] MEDS ORDERED: LACTATED RINGERS 1,000 ML IV ONE (09:59)
[2017-06-04] MEDS ORDERED: fentaNYL (PF) 50 MCG/ML 2 ML AMP IVP ONE (10:02)
[2017-06-04] MEDS: MIDAZOLAM 2 MG/2 ML VIAL IVP ONE ×2 (10:02→10:04)
--- NOTE | 2017-06-04 10:20 | P.TEE ---
Indications for Procedure(s): Rule out infective endocarditis Date of Procedure: 06/04/17 Preoperative Diagnosis: Rule out infective endocarditis Postoperative Diagnosis: No obvious vegetation noted Procedure(s) Performed: Anesthesia: MAC (Sedation time was 15 minutes) Transesophageal Echocardiogram (TIAN) Progress Note: PROCEDURE: Transesophageal echocardiogram. INDICATION: Low-grade fever rule out infective endocarditis. PROCEDURE NOTE: After obtaining informed consent, transesophageal echocardiogram was performed in the left lateral position using an Omniplane probe. Local and IV sedation were obtained using Xylocaine spray, 2 mg of Versed and 25 mcg of fentanyl. The patient tolerated the procedure well without any obvious immediate complications. Total conscious sedation time was 15 minutes FINDINGS: Mitral valve: Anatomically normal there is no evidence of vegetation there is mild mitral regurgitation noted a. Aortic valve: tricuspid valve there is no vegetation. Tricuspid:valve: mild tricuspid regurgitation and no vegetation no vegetatioPulmonary valve: [ No vegetation] Left ventricle: [Nrmal size and systolic function] ith an ejection fraction of [ 60%. Left atriu]ight atrium []Left Artial Appendage: rInteratrial septum: [Heather is no evidence of [id number] shunt by agitated saline contrast study]. Aorta: [Fee of aneurysm, dissection or significant atherosclerosis]. CONCLUSIONS: 1. [ No vegetation] 2. [ normal LV function] 3. [ Mild mitral regurgitation] Description of Procedure(s):
[2017-06-04] MEDS: SODIUM CHLORIDE 0.9% 1,000 ML IV SCH (11:05)
[2017-06-04] MEDS: MULTIVITAMINS, THERA 1 EACH TAB PO SCH (11:45)
--- NOTE | 2017-06-04 15:23 | P.PN ---
<Marc Dorado - Last Filed: 06/05/17 11:47> Progress Note - Text Attending note. Date of service-06/04/2017 This patient was seen and examined by me . Discussed the patient with my nurse practitioner Ms. Alex. Patient admitted with possible acute discitis. On IV antibiotics. Tolerating his diet.. Some back pain On examination: Sitting up on a chair. Afebrile. Investigations: Blood cultures positive from June 01 for Enterococcus faecalis Assessment and plan: Acute discitis possibly in the L1-L2 area with a possible phlegmon as per MRI with positive blood cultures growing enterococcus faecalis. Dr. Morris called me that MRI was showing a possible new phlegmon. I did tell him I discussed with the patient earlier that level than consider him transferred to [facility] under Dr. Castaneda the neurosurgeon well known to the patient. Earlier today spoke with the patient and his sister. Continue with IV ceftriaxone and IV ampicillin. TIAN negative for any vegetations. Total time spent about 40 minutes with over 25 minutes of discussion <Gilma Alex - Last Filed: 06/05/17 19:20> Progress Note - Text DATE OF SERVICE: 06/04/2017 PRESENTING COMPLAINT: Fever, chills HISTORY OF PRESENT ILLNESS: 61-year-old male history of hydrocephalus, lumbar discitis and osteomyelitis 2 episodes and received antibiotics. had discitis taking care of at [facility] and subsequently went to [facility]. was doing well on home developed chills and fever of 101.4 at home, presented to Dr. Vargas's office and from there was directly admitted. INTERVAL HISTORY: 06/04/2017: Patient moving from bed to chair with the assistance of a walker and standby assistance. Antibiotic therapy continues with ceftriaxone and ampicillin and vancomycin discontinued., complains of back pain however improved from yesterday. TIAN results negative for any vegetation. Tolerating his diet, last BM 06/03/2017. 06/03/2017: Patient lying in bed appears comfortable however does complain about a flareup of back pain today. Worse than the days previous IV antibiotics continue. REVIEW OF SYSTEMS: Done for constitutional ,cardiovascular, GI, pulmonary with relevant findings as above. CURRENT MEDICATIONS IV ampicillin, IV ceftriaxone PHYSICAL EXAM VITAL SIGNS: Temperature 98.8 pulse 82 respiratory rate 16 blood pressure 139/79, oxygen saturation 95% on room air. GENERAL APPEARANCE: Sitting up in a chair, not in distress. EYES: Pupils equal. Conjunctiva normal. NECK: JVD not raised. Mass not palpable. RESPIRATORY: Respiratory effort normal. Lungs fair air entry on auscultation. CARDIOVASCULAR: First and second sounds normal. No edema. ABDOMEN: Soft. Liver and spleen not palpable. No tenderness. No mass palpable. PSYCHIATRY: Alert and oriented x3. Mood and affect normal. NEUROLOGICAL: Wasting of the small muscles of the hands and forehead INVESTIGATIONS: None new ASSESSMENT: -Acute discitis in the L1-L2 area with a possible phlegmon as per MRI with positive blood cultures growing enterococcus faecalis -Chronic hydrocephalus -Chronic syringomyelia -Normocytic anemia PLAN: Continue current antibiotics MRI pending. Plan of care discussed with the patient at the bedside he is in agreement. We will continue to follow closely. TRANSLATOR/INTERPRETER statement: Patient was seen and examined by nurse practitioner Gilma Alex and all elements of the case discussed with attending Dr. Dorado
[2017-06-04] MEDS: ACETAMINOPHEN TAB 325 MG TAB PO PRN (15:33)
[2017-06-04] MEDS: TAMSULOSIN 0.4 MG CAP.ER.24H PO SCH (20:23)
[2017-06-04] MEDS: HYDROcodone/APAP 5-325MG 1 EACH TAB PO PRN (20:25)
--- NOTE | 2017-06-04 22:52 | P.PN ---
Subjective Principal diagnosis: Enterococcal bacteremia 61-year-old male known to me from his hospitalizations this year which were related to enterococcus bacteremia and evidence of the discitis. The patient was treated with a course of antibiotic therapy. He had good resolution of his symptoms and that is severe back pain resolved. His inflammatory parameters also improved. However he never had complete resolution of his back pain. He completed a course of antibiotic therapy. Shortly thereafter he again developed significant pain as well as fever. He consequently was transferred to [facility] under the care of his neurosurgeon. He underwent a discectomy debridement the area. He was cared for outside of our community. Was apparently treated for a long course of antibiotic therapy. He had resolution of his elevated sed rate and CRP. In his antibiotic therapy was completed. Follow-up imaging studies were performed showing evidence of significant ongoing changes but there was of course surgical changes also. The patient was having some intermittent fevers that were not persistent. This was reported to the other providers. The patient however presents to our emergency center with fever chills and feeling poorly. He was found evidence of enterococcus bacteremia occurring again. Imaging to his spine is encouraging evidence of ongoing changes. However current MRI is being compared to an MRI that was prior to his recent surgical intervention. The patient continues to have some back pain about a level III out of 10 He is having no further fevers or chills. Still feels a bit weak and does not feel that his baseline. TIAN was performed no evidence of endocarditis was noted. The MRI from November is compared to March with the radiologist. Objective - Vital Signs Vital signs: Vital Signs Temp 98.7 F 06/04/17 21:23 Pulse 76 06/04/17 21:23 Resp 20 06/04/17 21:23 BP 122/76 06/04/17 21:23 Pulse Ox 94 L 06/04/17 10:59 Intake & Output 06/04/17 06/04/17 06/05/17 06:59 18:59 06:59 Intake Total 1350 510 Output Total 600 Balance 1350 -90 Weight 92.323 kg Intake: IV 50 Intake, IV Titration 1350 100 Amount Ampicillin 2,000 mg In 300 100 Sodium Chloride 0.9% 100 ml @ 200 mls/hr IVPB Q4HR IRAM Rx#:[id number] Lactated Ringers 1,000 ml 700 @ 100 mls/hr IV .Q10H IRAM Rx#:[id number] Vancomycin 1,750 mg In 250 Sodium Chloride 0.9% 250 ml @ 125 mls/hr IVPB Q12HR IRAM Rx#:[id number] cefTRIAXone 2,000 mg In 100 Sodium Chloride 0.9% 100 ml @ 100 mls/hr IVPB Q24H IRAM Rx#:[id number] Oral 360 Output: Urine 600 Other: Voiding Method Urinal Urinal Incontinent Incontinent # Voids 3 3 # Bowel Movements 1 - Exam Pleasant 61-year-old gentleman who seems to be comfortable. It is noted has the history of the significant syringomyelocele. HEENT: Anicteric conjunctiva are pink and moist nasal mucosa grossly intact without significant lesions, there is no thrush. Exophthalmus without change Neck: The neck is supple without significant lymphadenopathy or thyromegaly. Lungs: Good bilateral air entry without significant crackles or wheezing. There is no significant bronchial sounds. There is no egophony or dullness. Heart: Regular rate and rhythm with an audible S1-S2, no S3 no S4. There is no significant murmur click or rub, PMI was nondisplaced. Abdomen: Positive bowel sounds soft and nontender without palpable masses or organomegaly. There was no guarding or rebound. Extremities: The upper extremities have excellent pulses they are symmetric, no significant petechiae or telangiectasia. No splinter hemorrhages were noted. The lower extremities are free from significant edema. The peripheral pulses were 2+ and symmetric. Neuro: Awake alert oriented to person place and time. There are no acute new gross focal sensory motor deficits. Patient was having some significant spasm to the right leg that is now well controlled with utilization of his baclofen. - Labs CBC & Chem 7: 06/02/17 07:10 06/02/17 07:10 Labs: Microbiology - Last 24 Hours (Table) 06/03/17 11:26 Blood Culture - Preliminary Blood No Growth after 24 hours 06/01/17 07:45 Blood Culture Gram Stain - Final Blood Blood Culture - Final Enterococcus faecalis Laboratory Results WBC 8.2 k/uL (3.8-10.6) 06/02/17 07:10 RBC 3.46 m/uL (4.30-5.90) L 06/02/17 07:10 Hgb 10.1 gm/dL (13.0-17.5) L 06/02/17 07:10 Hct 29.2 % (39.0-53.0) L 06/02/17 07:10 MCV 84.6 fL (80.0-100.0) 06/02/17 07:10 MCH 29.1 pg (25.0-35.0) 06/02/17 07:10 MCHC 34.4 g/dL (31.0-37.0) 06/02/17 07:10 RDW 13.9 % (11.5-15.5) 06/02/17 07:10 Plt Count 251 k/uL (150-450) 06/02/17 07:10 Neutrophils % 73 % 06/02/17 07:10 Lymphocytes % 17 % 06/02/17 07:10 Monocytes % 5 % 06/02/17 07:10 Eosinophils % 1 % 06/02/17 07:10 Basophils % 0 % 06/02/17 07:10 Neutrophils # 6.0 k/uL (1.3-7.7) 06/02/17 07:10 Lymphocytes # 1.4 k/uL (1.0-4.8) 06/02/17 07:10 Monocytes # 0.4 k/uL (0-1.0) 06/02/17 07:10 Eosinophils # 0.1 k/uL (0-0.7) 06/02/17 07:10 Basophils # 0.0 k/uL (0-0.2) 06/02/17 07:10 Poikilocytosis Slight 06/02/17 07:10 Sodium 141 mmol/L (137-145) 06/02/17 07:10 Potassium 4.0 mmol/L (3.5-5.1) 06/02/17 07:10 Chloride 109 mmol/L (98-107) H 06/02/17 07:10 Carbon Dioxide 26 mmol/L (22-30) 06/02/17 07:10 Anion Gap 6 mmol/L 06/02/17 07:10 BUN 14 mg/dL (9-20) 06/02/17 07:10 Creatinine 0.94 mg/dL (0.66-1.25) 06/02/17 07:10 Est GFR (MDRD) Af Amer >60 (>60 ml/min/1.73 sqM) 06/02/17 07:10 Est GFR (MDRD) Non-Af >60 (>60 ml/min/1.73 sqM) 06/02/17 07:10 Glucose 91 mg/dL (74-99) 06/02/17 07:10 POC Glucose (mg/dL) 121 mg/dL (75-99) H 06/03/17 20:35 POC Glu Laboratory Specialist Kalie Garcia 06/03/17 20:35 Calcium 8.7 mg/dL (8.4-10.2) 06/02/17 07:10 Total Bilirubin 0.7 mg/dL (0.2-1.3) 05/31/17 21:48 AST 30 U/L (17-59) 05/31/17 21:48 ALT 53 U/L (21-72) 05/31/17 21:48 Alkaline Phosphatase 104 U/L (38-126) 05/31/17 21:48 Total Protein 7.3 g/dL (6.3-8.2) 05/31/17 21:48 Albumin 3.0 g/dL (3.5-5.0) L 05/31/17 21:48 Urine Color Yellow 06/01/17 05:50 Urine Appearance Clear (Clear) 06/01/17 05:50 Urine pH 6.0 (5.0-8.0) 06/01/17 05:50 Ur Specific [place] 1.015 (1.001-1.035) 06/01/17 05:50 Urine Protein Trace (Negative) H 06/01/17 05:50 Urine Glucose (UA) Negative (Negative) 06/01/17 05:50 Urine Ketones Negative (Negative) 06/01/17 05:50 Urine Blood Small (Negative) H 06/01/17 05:50 Urine Nitrite Negative (Negative) 06/01/17 05:50 Urine Bilirubin Negative (Negative) 06/01/17 05:50 Urine Urobilinogen <2.0 mg/dL (<2.0) 06/01/17 05:50 Ur Leukocyte Esterase Negative (Negative) 06/01/17 05:50 Urine RBC 9 /hpf (0-5) H 06/01/17 05:50 Urine WBC 1 /hpf (0-5) 06/01/17 05:50 Ur Squamous Epith Cells <1 /hpf (0-4) 06/01/17 05:50 Calcium Oxalate Crystal Occasional /hpf (None) H 05/31/17 17:50 Amorphous Sediment Occasional /hpf (None) H 05/31/17 17:50 Hyaline Casts 1 /lpf (0-2) 05/31/17 17:50 Urine Mucus Rare /hpf (None) H 06/01/17 05:50 Vancomycin Trough 18.9 ug/mL 06/03/17 08:38 Microbiology 06/03/17 11:26 Blood Blood Culture - Preliminary No Growth after 24 hours 06/01/17 07:45 Blood Blood Culture Gram Stain - Final 06/01/17 07:45 Blood Blood Culture - Final Enterococcus faecalis 05/31/17 17:28 Blood Blood Culture Gram Stain - Final 05/31/17 17:28 Blood Blood Culture - Final Enterococcus faecalis 05/31/17 17:50 Urine,Voided Urine Culture - Final 06/01/17 07:45 Blood Blood Culture - Final 05/31/17 17:28 Blood Blood Culture - Final - Imaging and Cardiology TIAN negative for endocarditis MRI from November as compared to the May MRI. Radiology will attempt to get the films from outside hospital from March. Regardless though of surgical changes. There is active changes consistent with ongoing infection to the lumbar disc, osteomyelitis and likely phlegmon of the psoas muscle consistent with ongoing infection rather than postsurgical change. Assessment and Plan (1) Bacteremia due to Enterococcus Narrative/Plan: 61-year-old male presents to Hospital with fever and not feeling well. Workup revealed evidence of the positive blood cultures again with enterococcus. His complex history the patient has been admitted and receiving intravenous antibiotic therapy with ampicillin and vancomycin. Blood cultures are available showing evidence of the enterococcus that is ampicillin susceptible. Tonsillectomy vancomycin will be discontinued. Ceftriaxone will be added to the ampicillin percentages to get activity with lower toxicity and long-term gentamicin therapy. TIAN will be again performed pressure there is no underlying endocarditis. It appears that at the outside hospital MRI was performed in March. The case is discussed with radiology. Appears to have ongoing active infection of the spine of the osseous structure, disc as well as phlegmon in the psoas muscle. Although there are postoperative changes the current changes are more consistent with infection and postoperative change. This is discussed with the attending physician. The patient would do well to have evaluation by his neurosurgeon, Dr. Castaneda, to determine the need for further surgical drainage and debridement. Antibiotic therapy is been enhanced with the high-dose ampicillin and Rocephin. Follow blood cultures are negative at this time. Patient is feeling slightly better at this time. We'll likely transfer to the neurosurgeon's Hospital. These details are discussed with the patient's sister Gege. Status: Acute (2) Discitis of lumbosacral region Status: Acute
[2017-06-04 22:59] VITALS: RESP 16
[2017-06-05] MEDS: cefTRIAXone 2,000 MG in SODIUM CHLORIDE 0.9% 100 ML IVPB SCH (00:48)
[2017-06-05] MEDS: BACLOFEN 10 MG TAB PO SCH ×3 (00:48→16:49)
[2017-06-05] MEDS: AMPICILLIN 2,000 MG in SODIUM CHLORIDE 0.9% 100 ML IVPB SCH ×6 (02:10→19:41)
[2017-06-05] MEDS: MONTELUKAST 10 MG TAB PO SCH (08:30)
[2017-06-05] MEDS: SODIUM CHLORIDE 0.9% 1,000 ML IV SCH (08:30)
[2017-06-05 08:38] LABS: ALT 39 U/L (21-72); AST 16 U/L (17-59); Alkaline Phosphatase 89 U/L (38-126); Anion Gap 9 mmol/L; Blood Urea Nitrogen 12 mg/dL (9-20); Calcium 8.8 mg/dL (8.4-10.2); Carbon Dioxide 23 mmol/L (22-30); Chloride 110 mmol/L (98-107); Glucose 94 mg/dL (74-99); Non-African American GFR(MDRD) >60 (>60 ml/min/1.73 sqM); Sodium 142 mmol/L (137-145); Total Bilirubin 0.5 mg/dL (0.2-1.3); Total Protein 7.3 g/dL (6.3-8.2)
[2017-06-05] MEDS: SYMBICORT 160-4.5 MCG INHALER INHALATION SCH ×2 (08:49→20:51)
[2017-06-05] MEDS: HYDROcodone/APAP 5-325MG 1 EACH TAB PO PRN ×2 (09:06→19:42)
[2017-06-05] MEDS: MULTIVITAMINS, THERA 1 EACH TAB PO SCH (11:57)
[2017-06-05 12:43] LABS: Basophils % (A) 0 %; CH 28.1; CHCM 32.5; Eosinophils # (A) 0.1 k/uL (0-0.7); Eosinophils % (A) 2 %; HCT 28.9 % (39.0-53.0); HDW 3.64; HGB 9.4 gm/dL (13.0-17.5); Hypochromasia Slight; Luc # (Auto) 0.21; Luc % (Auto) 3; Lymphocytes # (A) 1.5 k/uL (1.0-4.8); Lymphocytes % (A) 21 %; MCH 28.4 pg (25.0-35.0); MCHC 32.7 g/dL (31.0-37.0); MCV 87.1 fL (80.0-100.0); Mean Platelet Volume 6.8; Monocytes # (A) 0.4 k/uL (0-1.0); Monocytes % (A) 5 %; Neutrophils % (A) 69 %; Poikilocytosis Slight; RBC 3.32 m/uL (4.30-5.90); WBC 7.3 k/uL (3.8-10.6); WBC (Perox) 7.59
[2017-06-05 16:36] VITALS: BP 128/72; PULSE 76; TEMP 98.4
--- NOTE | 2017-06-05 19:02 | P.PN ---
Progress Note - Text DATE OF SERVICE: 06/05/2017 PRESENTING COMPLAINT: Fever, chills HISTORY OF PRESENT ILLNESS: 61-year-old male history of hydrocephalus, lumbar discitis and osteomyelitis 2 episodes and received antibiotics. had discitis taking care of at [facility] and subsequently went to [facility]. was doing well on home developed chills and fever of 101.4 at home, presented to Dr. Vargas's office and from there was directly admitted. INTERVAL HISTORY: 06/05/2017: Moving from bed to chair with assistance of walker able to maneuver independently. 06/04/2017: Patient moving from bed to chair with the assistance of a walker and standby assistance. Antibiotic therapy continues with ceftriaxone and ampicillin and vancomycin discontinued., complains of back pain however improved from yesterday. TIAN results negative for any vegetation. Tolerating his diet, last BM 06/03/2017. 06/03/2017: Patient lying in bed appears comfortable however does complain about a flareup of back pain today. Worse than the days previous IV antibiotics continue. REVIEW OF SYSTEMS: Done for constitutional ,cardiovascular, GI, pulmonary with relevant findings as above. CURRENT MEDICATIONS IV ampicillin, IV ceftriaxone PHYSICAL EXAM VITAL SIGNS: Temperature 98.8 pulse 82 respiratory rate 16 blood pressure 139/79, oxygen saturation 95% on room air. GENERAL APPEARANCE: Sitting up in a chair, not in distress. EYES: Pupils equal. Conjunctiva normal. NECK: JVD not raised. Mass not palpable. RESPIRATORY: Respiratory effort normal. Lungs fair air entry on auscultation. CARDIOVASCULAR: First and second sounds normal. No edema. ABDOMEN: Soft. Liver and spleen not palpable. No tenderness. No mass palpable. PSYCHIATRY: Alert and oriented x3. Mood and affect normal. NEUROLOGICAL: Wasting of the small muscles of the hands and forehead INVESTIGATIONS: White blood cell count 7.3, hemoglobin 9.4, sodium 142, chloride 110, AST 16 Blood culture: 06/03/2017: No growth after 48 hours Blood cultures: 06/01/2017: Enterococcus faecalis Urine culture: 05/31/2017: No growth after 18 hours ASSESSMENT: -Acute discitis in the L1-L2 area with a possible phlegmon as per MRI with positive blood cultures growing Enterococcus faecalis -Chronic hydrocephalus -Chronic syringomyelia -Normocytic anemia PLAN: Continue current antibiotics. Infectious disease recommended that the patient transfer to [facility] under the care of Dr. Castaneda who knows the patient and his condition well. Plan of care discussed with the patient at the bedside he is in agreement. We will continue to follow closely. PIECE [employer] CLERK statement: Patient was seen and examined by nurse practitioner Gilma Alex and all elements of the case discussed with attending Dr. Dorado
[2017-06-05] MEDS: TAMSULOSIN 0.4 MG CAP.ER.24H PO SCH (19:42)
--- NOTE | 2017-06-05 20:18 | P.PN ---
Subjective Principal diagnosis: Enterococcal bacteremia 61-year-old male known to me from his hospitalizations this year which were related to enterococcus bacteremia and evidence of the discitis. The patient was treated with a course of antibiotic therapy. He had good resolution of his symptoms and that is severe back pain resolved. His inflammatory parameters also improved. However he never had complete resolution of his back pain. He completed a course of antibiotic therapy. Shortly thereafter he again developed significant pain as well as fever. He consequently was transferred to [facility] under the care of his neurosurgeon. He underwent a discectomy debridement the area. He was cared for outside of our community. Was apparently treated for a long course of antibiotic therapy. He had resolution of his elevated sed rate and CRP. In his antibiotic therapy was completed. Follow-up imaging studies were performed showing evidence of significant ongoing changes but there was of course surgical changes also. The patient was having some intermittent fevers that were not persistent. This was reported to the other providers. The patient however presents to our emergency center with fever chills and feeling poorly. He was found evidence of enterococcus bacteremia occurring again. Imaging to his spine is encouraging evidence of ongoing changes. However current MRI is being compared to an MRI that was prior to his recent surgical intervention. The patient continues to have some back pain about a level III out of 10 He is having no further fevers or chills. Still feels a bit weak and does not feel that his baseline. TIAN was performed no evidence of endocarditis was noted. Case is discussed with the hospitalist. Arrangements will be made for the patient to be seen by his neurosurgeon. Objective - Vital Signs Vital signs: Vital Signs Temp 98.4 F 06/05/17 15:00 Pulse 76 06/05/17 15:00 Resp 16 06/05/17 15:00 BP 128/72 06/05/17 15:00 Pulse Ox 94 L 06/05/17 15:00 Intake & Output 06/05/17 06/05/17 06/06/17 06:59 18:59 06:59 Intake Total 1200 Balance 1200 Intake: Oral 1200 Other: Voiding Method Urinal Urinal Incontinent Incontinent # Voids 3 1 # Bowel Movements 1 - Exam Pleasant 61-year-old gentleman who seems to be comfortable. It is noted has the history of the significant syringomyelocele. HEENT: Anicteric conjunctiva are pink and moist nasal mucosa grossly intact without significant lesions, there is no thrush. Exophthalmus without change Neck: The neck is supple without significant lymphadenopathy or thyromegaly. Lungs: Good bilateral air entry without significant crackles or wheezing. There is no significant bronchial sounds. There is no egophony or dullness. Heart: Regular rate and rhythm with an audible S1-S2, no S3 no S4. There is no significant murmur click or rub, PMI was nondisplaced. Abdomen: Positive bowel sounds soft and nontender without palpable masses or organomegaly. There was no guarding or rebound. Extremities: The upper extremities have excellent pulses they are symmetric, no significant petechiae or telangiectasia. No splinter hemorrhages were noted. The lower extremities are free from significant edema. The peripheral pulses were 2+ and symmetric. Neuro: Awake alert oriented to person place and time. There are no acute new gross focal sensory motor deficits. Patient was having some significant spasm to the right leg that is now well controlled with utilization of his baclofen. - Labs CBC & Chem 7: 06/05/17 07:34 06/05/17 07:34 Labs: Abnormal Lab Results - Last 24 Hours (Table) 06/05/17 06/05/17 Range/Units 07:34 07:34 RBC 3.32 L (4.30-5.90) m/uL Hgb 9.4 L (13.0-17.5) gm/dL Hct 28.9 L (39.0-53.0) % Chloride 110 H (98-107) mmol/L AST 16 L (17-59) U/L Albumin 3.0 L (3.5-5.0) g/dL Microbiology - Last 24 Hours (Table) 06/03/17 11:26 Blood Culture - Preliminary Blood No Growth after 48 hours Laboratory Results WBC 7.3 k/uL (3.8-10.6) 06/05/17 07:34 RBC 3.32 m/uL (4.30-5.90) L 06/05/17 07:34 Hgb 9.4 gm/dL (13.0-17.5) L 06/05/17 07:34 Hct 28.9 % (39.0-53.0) L 06/05/17 07:34 MCV 87.1 fL (80.0-100.0) 06/05/17 07:34 MCH 28.4 pg (25.0-35.0) 06/05/17 07:34 MCHC 32.7 g/dL (31.0-37.0) 06/05/17 07:34 RDW 14.0 % (11.5-15.5) 06/05/17 07:34 Plt Count 323 k/uL (150-450) 06/05/17 07:34 Neutrophils % 69 % 06/05/17 07:34 Lymphocytes % 21 % 06/05/17 07:34 Monocytes % 5 % 06/05/17 07:34 Eosinophils % 2 % 06/05/17 07:34 Basophils % 0 % 06/05/17 07:34 Neutrophils # 5.0 k/uL (1.3-7.7) 06/05/17 07:34 Lymphocytes # 1.5 k/uL (1.0-4.8) 06/05/17 07:34 Monocytes # 0.4 k/uL (0-1.0) 06/05/17 07:34 Eosinophils # 0.1 k/uL (0-0.7) 06/05/17 07:34 Basophils # 0.0 k/uL (0-0.2) 06/05/17 07:34 Hypochromasia Slight 06/05/17 07:34 Poikilocytosis Slight 06/05/17 07:34 Sodium 142 mmol/L (137-145) 06/05/17 07:34 Potassium 4.0 mmol/L (3.5-5.1) 06/05/17 07:34 Chloride 110 mmol/L (98-107) H 06/05/17 07:34 Carbon Dioxide 23 mmol/L (22-30) 06/05/17 07:34 Anion Gap 9 mmol/L 06/05/17 07:34 BUN 12 mg/dL (9-20) 06/05/17 07:34 Creatinine 0.96 mg/dL (0.66-1.25) 06/05/17 07:34 Est GFR (MDRD) Af Amer >60 (>60 ml/min/1.73 sqM) 06/05/17 07:34 Est GFR (MDRD) Non-Af >60 (>60 ml/min/1.73 sqM) 06/05/17 07:34 Glucose 94 mg/dL (74-99) 06/05/17 07:34 POC Glucose (mg/dL) 121 mg/dL (75-99) H 06/03/17 20:35 POC Glu Medicaid Biller Kalie Garcia 06/03/17 20:35 Calcium 8.8 mg/dL (8.4-10.2) 06/05/17 07:34 Total Bilirubin 0.5 mg/dL (0.2-1.3) 06/05/17 07:34 AST 16 U/L (17-59) L 06/05/17 07:34 ALT 39 U/L (21-72) 06/05/17 07:34 Alkaline Phosphatase 89 U/L (38-126) 06/05/17 07:34 Total Protein 7.3 g/dL (6.3-8.2) 06/05/17 07:34 Albumin 3.0 g/dL (3.5-5.0) L 06/05/17 07:34 Urine Color Yellow 06/01/17 05:50 Urine Appearance Clear (Clear) 06/01/17 05:50 Urine pH 6.0 (5.0-8.0) 06/01/17 05:50 Ur Specific [place] 1.015 (1.001-1.035) 06/01/17 05:50 Urine Protein Trace (Negative) H 06/01/17 05:50 Urine Glucose (UA) Negative (Negative) 06/01/17 05:50 Urine Ketones Negative (Negative) 06/01/17 05:50 Urine Blood Small (Negative) H 06/01/17 05:50 Urine Nitrite Negative (Negative) 06/01/17 05:50 Urine Bilirubin Negative (Negative) 06/01/17 05:50 Urine Urobilinogen <2.0 mg/dL (<2.0) 06/01/17 05:50 Ur Leukocyte Esterase Negative (Negative) 06/01/17 05:50 Urine RBC 9 /hpf (0-5) H 06/01/17 05:50 Urine WBC 1 /hpf (0-5) 06/01/17 05:50 Ur Squamous Epith Cells <1 /hpf (0-4) 06/01/17 05:50 Calcium Oxalate Crystal Occasional /hpf (None) H 05/31/17 17:50 Amorphous Sediment Occasional /hpf (None) H 05/31/17 17:50 Hyaline Casts 1 /lpf (0-2) 05/31/17 17:50 Urine Mucus Rare /hpf (None) H 06/01/17 05:50 Vancomycin Trough 18.9 ug/mL 06/03/17 08:38 Microbiology 06/03/17 11:26 Blood Blood Culture - Preliminary No Growth after 48 hours 06/01/17 07:45 Blood Blood Culture Gram Stain - Final 06/01/17 07:45 Blood Blood Culture - Final Enterococcus faecalis 05/31/17 17:28 Blood Blood Culture Gram Stain - Final 05/31/17 17:28 Blood Blood Culture - Final Enterococcus faecalis 05/31/17 17:50 Urine,Voided Urine Culture - Final 06/01/17 07:45 Blood Blood Culture - Final 05/31/17 17:28 Blood Blood Culture - Final Assessment and Plan (1) Bacteremia due to Enterococcus Narrative/Plan: 61-year-old male presents to Hospital with fever and not feeling well. Workup revealed evidence of the positive blood cultures again with enterococcus. His complex history the patient has been admitted and receiving intravenous antibiotic therapy with ampicillin and vancomycin. Blood cultures are available showing evidence of the enterococcus that is ampicillin susceptible. Tonsillectomy vancomycin will be discontinued. Ceftriaxone will be added to the ampicillin percentages to get activity with lower toxicity and long-term gentamicin therapy. TIAN will be again performed pressure there is no underlying endocarditis. It appears that at the outside hospital MRI was performed in March. The case is discussed with radiology. Appears to have ongoing active infection of the spine of the osseous structure, disc as well as phlegmon in the psoas muscle. Although there are postoperative changes the current changes are more consistent with infection and postoperative change. This is discussed with the attending physician. The patient would do well to have evaluation by his neurosurgeon, Dr. Castaneda, to determine the need for further surgical drainage and debridement. Antibiotic therapy is been enhanced with the high-dose ampicillin and Rocephin. Follow blood cultures are negative at this time. Patient is feeling slightly better at this time. PICC line has been requested Patient will likely transfer to the care of the neurosurgeon at the tertiary hospital today. Would like to resume his care when he gets back to town. Status: Acute (2) Discitis of lumbosacral region Status: Acute
--- NOTE | 2017-06-05 21:23 | P.DS ---
Providers Date of admission: 05/31/17 14:00 Expected date of discharge: 06/05/17 Attending physician: Marc Dorado Consults: 05/31/17 17:20 Consult Physician Routine Consulting Provider: Augusto Nguyen Consult Reason/Comments: fever of unknown etiology Do you want consulting provider notified?: Yes 06/02/17 16:05 Consult Physician Routine Consulting Provider: Haley Banks Consult Reason/Comments: TIAN/poss endocarditis Do you want consulting provider notified?: Yes [facility] Course: FINAL DIAGNOSES: -Acute discitis in the L1-L2 area with a possible phlegmon as per MRI with positive blood cultures growing enterococcus faecalis -Chronic hydrocephalus -Chronic syringomyelia -Normocytic anemia HOSPTIAL COURSE: 61-year-old male history of hydrocephalus, lumbar discitis and osteomyelitis 2 episodes and had received antibiotics, had discitis taken care of it [facility] and was subsequently went to [facility] for rehabilitation, was doing well at home developed chills and fever of 101.4, presented to Dr. Vargas's office and from there was directly admitted to the hospital. Concerns for sepsis, cardiology and infectious disease consulted. Labs and blood cultures drawn antibiotic therapy initiated with vancomycin and ampicillin. Infectious disease consulted. Blood cultures returned enterococcus facialis and antibiotics changed to ampicillin and ceftriaxone, vancomycin discontinued. Cardiology consulted to aid in ruling out a source potentially endocarditis. TIAN revealed no vegetation. MRI of the lumbar spine completed, upon further review it was felt that there were significant findings at L1-L2 compatible with discitis consistent with changes of osteomyelitis. It is felt that this in fact may be a recurrence and is in the patient's best interest to be transferred to the surgeon who has performed this procedure on him previously at [facility]. Plan of care was discussed with the patient at length he was agreeable to the transfer. Patient will be transferred to the care of Dr. Castaneda at [facility]. Patient tolerates his diet, able to transfer from bed to chair with assistance of a walker and standby assistance, last BM 06/05/2017. PHYSICAL EXAM: CARDIOVASCULAR: First and second sounds noted no edema RESPIRATORY: Effort normal, lung sounds diminished bilaterally MUSKULOSKELETAL: Able to transfer with use of a walker, NEUROLOGIC: clawing of both hands some lower extremity weakness Patient was seen and examined by nurse practitioner Gilma Alex in all elements of the case discussed with attending Dr. Dorado DISPOSITION: Transferred to [facility] to the care of Dr. FLORES Plan - Discharge Summary New Discharge Prescriptions: No Action Silodosin [Rapaflo] 8 mg PO HS Albuterol Inhaler [Ventolin Hfa Inhaler] 2 puff INHALATION RT-Q4H PRN PRN Reason: Shortness Of Breath Budesonide/Formoterol Fumarate [Symbicort 160-4.5 Mcg Inhaler] 2 puff INHALATION RT-BID Montelukast [Singulair] 10 mg PO QAM Ketoconazole 2% Cream [Nizoral 2%] 1 applic TOPICAL DAILY PRN PRN Reason: Facial Skin Irritation Baclofen [Lioresal] 10 mg PO TID Multivitamins, Thera [Multivitamin (formulary)] 1 tab PO DAILY Discharge Medication List Albuterol Inhaler [Ventolin Hfa Inhaler] 2 puff INHALATION RT-Q4H PRN 10/08/16 [ History] Budesonide/Formoterol Fumarate [Symbicort 160-4.5 Mcg Inhaler] 2 puff INHALATION RT-BID 10/08/16 [History] Silodosin [Rapaflo] 8 mg PO HS 10/08/16 [History] Baclofen [Lioresal] 10 mg PO TID 05/31/17 [History] Ketoconazole 2% Cream [Nizoral 2%] 1 applic TOPICAL DAILY PRN 05/31/17 [History] Montelukast [Singulair] 10 mg PO QAM 05/31/17 [History] Multivitamins, Thera [Multivitamin (formulary)] 1 tab PO DAILY 05/31/17 [History ] Follow up Appointment(s)/Referral(s): Tyree Castaneda MD [STAFF PHYSICIAN] - 1 Week Reno Morris MD [STAFF PHYSICIAN] - 1 Week Reno Vargas MD [Primary Care Provider] - 1 Week Patient Instructions/Handouts: Bacteremia (DC) Activity/Diet/Wound Care/Special Instructions: Regular diet.
--- NOTE | 2017-06-08 11:06 | DS ---
DISCHARGE SUMMARY ADDENDUM: DATE OF SERVICE: 06/05/17 ATTENDING NOTE: This patient was seen and examined by me. I discussed this with the nurse practitioner Ms. Alex. This patient was seen by me on June 05, 2017. I spoke to the physician at [facility]. Gave him an update about the patient and then told the patient about the same. The patient's fevers have been down. Given his findings of the MRI and possible intervention, the patient is being transferred for a higher level of care. The patient's own neurosurgeon Dr. Clements is currently out of town. PHYSICAL EXAMINATION: On examination, lungs are clear. Cardiovascular: First and second sounds are normal. The patient has been afebrile. White count has been normal. The patient is being transferred to [facility]. Discharge planning and discussion. Total time spent was about 45 minutes. MMANGEL / WESTN: [id number] /
== END 2017-06-05 21:15 | disposition short-term general hospital (02) | DRG 872 ==
LOC: 4MS4W 14:00
PROVIDERS: ADMIT Hospitalist; ATTEND Hospitalist
DX: A41.81 Sepsis due to Enterococcus (principal); G91.9 Hydrocephalus, unspecified; G95.0 Syringomyelia and syringobulbia; M46.26 Osteomyelitis of vertebra, lumbar region; D64.9 Anemia, unspecified; I08.3 Combined rheumatic disorders of mitral, aortic and tricuspid valves; J45.909 Unspecified asthma, uncomplicated; M46.46 Discitis, unspecified, lumbar region; R26.9 Unspecified abnormalities of gait and mobility; R32 Unspecified urinary incontinence; Z96.643 Presence of artificial hip joint, bilateral; Z79.899 Other long term (current) drug therapy; Z88.1 Allergy status to other antibiotic agents
CPT/HCPCS: 71020; 72158; 80048; 80053; 80202; 81001; 85025; 87040; 87077; 87086; 87186; 93005; 93306; 93312; 93320; 93325; 94640; 94660; 99214

== ENCOUNTER 2019-02-16 16:01 | Emergency (ER) | payer MEDICARE, BC ==
[2019-02-16 18:35] VITALS: BP 153/95; PULSE 78; RESP 18; TEMP 97.5
--- NOTE | 2019-02-16 18:42 | CT ---
EXAMINATION TYPE: CT brain marianna govea DATE OF EXAM: 02/16/2019 COMPARISON: None HISTORY: Fall today, posterior head injury. Patient on blood thinners. CT DLP: 1588.1 mGycm Automated exposure control for dose reduction was used. TECHNIQUE: CT scan of the head and cervical spine are performed without contrast. FINDINGS: There is some cerebral cortical atrophy. There is no mass effect nor midline shift. There is no sign of intracranial hemorrhage. There is a ventricular shunt catheter in the right lateral ve ntricle noted. Calvarium is intact. There is no hydrocephalus. There is 2 cm hypodense area in the gr ay-white matter right posterior parietal lobe probably from previous catheter. There is some straightening of the cervical spine. There is mild spurring of the endplates. Posterior elements are intact. There is fusion anomaly of the C5 and C6 vertebra. 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 The skull base is intact. There are surgical clips at the skull base posteriorly. IMPRESSION: No acute intracranial abnormality. No acute abnormality of the cervical spine. Minor degenerative changes. Previous surgery.
--- NOTE | 2019-02-16 19:32 | ED ---
General Adult HPI - General Chief complaint: Fall Stated complaint: Fall Time Seen by Provider: 02/16/19 17:03 Source: patient, RN notes reviewed Mode of arrival: ambulatory - History of Present Illness Initial comments: 63-year-old male with a past medical history of brain shunt presents to the emergency department for a chief complaint of head injury. Patient states that he was stepping over the threshold of his kitchen when he lost his balance and fell backwards. Patient states he hit the back of his head. No loss of consciousness. Patient is on Eliquis for "possible blood clots in his legs". Denies headache at this time. States he is feeling normal but because he is on blood thinners he knew he should be evaluated. States he did have a cataract surgery of his left eye yesterday but he went to the [facility] eye [place] prior to this to have it evaluated and they said there were no complications. This is the same facility his procedure was performed.Patient has no other complaints at this time including shortness of breath, chest pain, abdominal pain, nausea or vomiting, headache, or visual changes. - Related Data Home Medications Medication Instructions Recorded Confirmed Albuterol Inhaler [Ventolin Hfa 2 puff INHALATION RT-DAILY PRN 02/16/19 02/16/19 Inhaler] Apixaban [Eliquis] 5 mg PO BID 02/16/19 02/16/19 Baclofen [Lioresal] 10 mg PO DAILY 02/16/19 02/16/19 Budesonide/Formoterol Fumarate 2 puff INHALATION RT-BID 02/16/19 02/16/19 [Symbicort 160-4.5 Mcg Inhaler] Montelukast [Singulair] 10 mg PO DAILY 02/16/19 02/16/19 Multivitamins, Thera [Multivitamin 1 tab PO DAILY 02/16/19 02/16/19 (formulary)] Tamsulosin [Flomax] 0.4 mg PO DAILY 02/16/19 02/16/19 Allergies Allergy/AdvReac Type Severity Reaction Status Date / Time doxycycline Allergy Rash/Hives Verified 02/16/19 16:22 loratadine [From Claritin] Allergy Rash/Hives Verified 02/16/19 17:38 Review of Systems ROS Statement: Those systems with pertinent positive or pertinent negative responses have been documented in the HPI. ROS Other: All systems not noted in ROS Statement are negative. Past Medical History Additional Past Medical History / Comment(s): Brain Shunt. Blood infection. History of Any Multi-Drug Resistant Organisms: None Reported Past Psychological History: No Psychological Hx Reported Smoking Status: Never smoker Past Alcohol Use History: None Reported Past Drug Use History: None Reported General Exam General appearance: alert, in no apparent distress Head exam: Present: normocephalic. Absent: atraumatic (Small hematoma noted over the left posterior parietal scalp) Eye exam: Present: normal appearance, PERRL, EOMI, other ( negative raccoon sign). Absent: scleral icterus, conjunctival injection, periorbital swelling ENT exam: Present: normal exam, normal oropharynx, mucous membranes moist, TM's normal bilaterally (Negative hemotympanum), normal external ear exam (Negative Sebastian sign) Neck exam: Present: normal inspection, full ROM. Absent: tenderness, meningismus, lymphadenopathy Respiratory exam: Present: normal lung sounds bilaterally. Absent: respiratory distress, wheezes, rales, rhonchi, stridor Cardiovascular Exam: Present: regular rate, normal rhythm, normal heart sounds. Absent: systolic murmur, diastolic murmur, rubs, gallop, clicks Extremities exam: Present: other (Moving all extremities without difficulty) Neurological exam: Present: alert, oriented X3, CN II-XII intact, other (GCS 15) Psychiatric exam: Present: normal affect, normal mood Course Vital Signs 02/16/19 02/16/19 16:17 18:33 Temperature 98.5 F 97.5 F L Pulse Rate 65 78 Respiratory 20 18 Rate Blood Pressure 155/99 153/95 O2 Sat by Pulse 99 95 Oximetry Medical Decision Making - Medical Decision Making 63-year-old male presents to the emergency department for a chief lien of head injury. Patient lost his balance and fell backwards hitting his head. Denies any weakness. Denies loss of consciousness or headache but is on blood thinners. Patient did have a cataract surgery in the left eye yesterday but went to [facility] eye [place] before coming here to have it evaluated and it was cleared of any Complications. Exam is unremarkable. GCS is 15. He does have a small hematoma noted over the left posterior parietal scalp. CT brain shows no acute intracranial abnormality. CT cervical spine shows no acute abnormality. Patient reevaluation, ready to go home, well appearing. Denying any new symptoms. Patient will be discharged home to follow up with primary care and return here if he has any worsening symptoms. Discussed concussion precautions Disposition Clinical Impression: Head injury Disposition: HOME SELF-CARE Condition: Good Instructions (If sedation given, give patient instructions): Head Injury (ED) Additional Instructions: Take Motrin or Tylenol for pain. Follow-up with primary care in 1-2 days. Return here to the emergency department if you have any worsening symptoms. Is patient prescribed a controlled substance at d/c from ED?: No Referrals: Reno Vargas MD [Primary Care Provider] - 1-2 days Time of Disposition: 19:31
== END 2019-02-16 19:42 | disposition home or self-care (01) ==
LOC: MERGE 16:01 → EC 16:01
DX: S09.90XA Unspecified injury of head, initial encounter (principal); Z79.01 Long term (current) use of anticoagulants; Z79.51 Long term (current) use of inhaled steroids; Z79.899 Other long term (current) drug therapy; Z88.1 Allergy status to other antibiotic agents; Z88.8 Allergy status to other drugs, medicaments and biological substances; Z98.2 Presence of cerebrospinal fluid drainage device; W01.198A Fall on same level from slipping, tripping and stumbling with subsequent striking against other object, initial encounter; Y92.000 Kitchen of unspecified non-institutional (private) residence as the place of occurrence of the external cause
CPT/HCPCS: 70450; 72125; 99283

== ENCOUNTER 2019-06-05 04:17 | Inpatient (IN) | payer MEDICARE, BC ==
[2019-06-05] MEDS ORDERED: HYDROmorphone 0.5 MG/0.5 ML SYRINGE IVP STA (04:41)
[2019-06-05 05:02] LABS: Basophils # (A) 0.1 k/uL (0-0.2); Basophils % (A) 1 %; Eosinophils # (A) 0.1 k/uL (0-0.7); Eosinophils % (A) 1 %; HCT 37.6 % (39.0-53.0); HGB 12.8 gm/dL (13.0-17.5); Lymphocytes # (A) 1.3 k/uL (1.0-4.8); Lymphocytes % (A) 17 %; MCH 29.7 pg (25.0-35.0); MCHC 33.9 g/dL (31.0-37.0); MCV 87.7 fL (80.0-100.0); Mean Platelet Volume 6.4; Monocytes # (A) 0.4 k/uL (0-1.0); Monocytes % (A) 5 %; Neutrophils # (A) 5.7 k/uL (1.3-7.7); Neutrophils % (A) 75 %; Platelet Count 204 k/uL (150-450); RBC 4.29 m/uL (4.30-5.90); RDW 13.8 % (11.5-15.5); WBC 7.7 k/uL (3.8-10.6)
[2019-06-05 05:22] LABS: INR 0.9 (<1.2); Partial Thromboplastin Time 22.2 sec (22.0-30.0)
[2019-06-05] MEDS ORDERED: NALOXONE 0.4 MG/ML 1 ML VIAL IV PRN (06:00)
[2019-06-05] MEDS ORDERED: ONDANSETRON 4 MG/2 ML VIAL IVP PRN (06:00)
[2019-06-05] MEDS ORDERED: HYDROmorphone 0.5 MG/0.5 ML SYRINGE IVP PRN (06:00)
[2019-06-05] MEDS: SODIUM CHLORIDE 0.9% 1,000 ML IV SCH ×3 (06:12→22:21)
[2019-06-05 06:16] LABS: African American GFR (CKD) >90 (>60 ml/min/1.73 sqM); Anion Gap 10 mmol/L; Blood Urea Nitrogen 27 mg/dL (9-20); Calcium 9.5 mg/dL (8.4-10.2); Carbon Dioxide 25 mmol/L (22-30); Chloride 106 mmol/L (98-107); Glucose 129 mg/dL (74-99); Potassium 4.1 mmol/L (3.5-5.1); Sodium 141 mmol/L (137-145)
--- NOTE | 2019-06-05 06:27 | XR ---
ADDENDUM - Added by Parker Santiago M.D. on 06/05/2019 6:30 AM (-07:00) Clarification: There is an acute, partially displaced fracture involving the fibula shaft. EXAM: XR Right Femur, 2 Views CLINICAL HISTORY: ITS.REASON XR Reason: Pain TECHNIQUE: Frontal and lateral views of the right femur. COMPARISON: No relevant prior studies available. FINDINGS: See Impression. IMPRESSION: 1. Acute comminuted fracture of the proximal tibia. 2. Focal periostitis involving the posterior cortex of the proximal fibula shaft may represent subacute injury. 3. Moderate size suprapatellar joint effusion. 4. Right total hip arthroplasty with satisfactory alignment and no hardware complications.
--- NOTE | 2019-06-05 06:30 | XR ---
EXAM: XR Right Tibia and Fibula, 2 Views CLINICAL HISTORY: ITS.REASON XR Reason: Pain TECHNIQUE: Frontal and lateral views of the right tibia and fibula. COMPARISON: No relevant prior studies available. FINDINGS: See Impression. IMPRESSION: 1. 1. Acute, mildly displaced comminuted fracture of the proximal tibia. 2. 2. Acute, moderately displaced fracture involving the proximal fibula shaft with distal component medially displaced by approximately one half shaft width compared to the proximal component. 3. 3. Moderate size suprapatellar joint effusion. 4. 4. Soft tissue swelling about the fracture sites. Prominent soft swelling about the ankle also. 5. 5. No radiopaque foreign bodies.
[2019-06-05] MEDS: HYDROmorphone 1 MG/ML 1 ML SYRINGE IVP PRN ×3 (07:38→14:51)
[2019-06-05] MEDS: FAMOTIDINE 20 MG TAB PO SCH ×2 (07:43→22:21)
--- NOTE | 2019-06-05 08:10 | CT ---
EXAMINATION TYPE: CT lower leg RT wo con DATE OF EXAM: 06/05/2019 COMPARISON: 06/05/2019 plain films HISTORY: Fall, leg injury CT DLP: 385.4 mGycm Automated exposure control for dose reduction was used. FINDINGS: There is a fluid fluid level within the suprapatellar joint space compatible with hemorrhage. The distal femur appears intact. The patella appears intact. There is a longitudinal fracture of the tibia extending from the tibial spines through the mid line e xiting from the posterior portion of the femoral metaphysis. At this level a transverse fracture of t he proximal tibia is also noted. This is better visualized in the coronal plane. There is a comminuted fracture of the proximal diaphyseal fibula. IMPRESSION: 1. COMMINUTED NONDISPLACED FRACTURE OF THE TIBIA. MAJOR COMPONENTS INCLUDE A TRANSVERSE FRACTURE THRO UGH THE PROXIMAL DIAPHYSIS WELL A LONGITUDINAL COMPONENT EXTENDING TOWARDS THE POSTERIOR TIBIAL SPINES. 2. COMMINUTED FRACTURE PROXIMAL DIAPHYSEAL FIBULA. 3. HEMARTHROSIS.
--- NOTE | 2019-06-05 14:49 | P.HPOR ---
History of Present Illness H&P Date: 06/05/19 Chief Complaint: Right lower extremity fracture The patient is a pleasant 63-year-old male who sustained an injury to his right leg or walking to the bathroom at home at around 3am this morning. He somehow stumbled and fell with his legs folded underneath him. His daughter is at bedside and provides additional history. She states he went down "in a catcher's position". He lives in an assisted living facility. EMS and to be called for assistance to get him up was unable to bear weight on his right leg. He was brought to the emergency department where x-rays revealed a fracture of his proximal tibia and fibula. He normally ambulates with a walker but frequently uses a wheelchair as well. He has had a long history of trouble with bacteremia and osteomyelitis (in his lumbar spine and shoulder). The source was eventually identified as an infected shunt which was later revised in 2018. He denies use recent history of infection. He has had prior UTIs as well. He localizes the pain to the right leg. Past medical history also includes peripheral vascular disease, chronic back pain and previous bilateral total hip arthroplasties. Past Medical History Past Medical History: Asthma, Prostate Disorder, Sleep Apnea/CPAP/BIPAP Additional Past Medical History / Comment(s): Brain Shunt. Blood infection. osteomyelitis 2017 History of Any Multi-Drug Resistant Organisms: None Reported Date of last positivie culture/infection: pseudomonas MDRO Source:: 2009 Past Surgical History: Back Surgery Additional Past Surgical History / Comment(s): Bilaretal hip replacements, d iscetomy and rt clavical removed d/t osteomyelits,shunt that has been placed for hydrocephalus "no longer patent", TIAN,cataracts. Past Anesthesia/Blood Transfusion Reactions: No Reported Reaction Past Psychological History: No Psychological Hx Reported Additional Psychological History / Comment(s): pt lives at [facility], uses a walker when up. Smoking Status: Never smoker Past Alcohol Use History: None Reported, Rare Past Drug Use History: None Reported - Past Family History Father Additional Family Medical History / Comment(s): FATHER OF BONE CANCER AT AGE OF 82 Mother Family Medical History: Dementia Additional Family Medical History / Comment(s): AT AGE 83 Medications and Allergies Home Medications Medication Instructions Recorded Confirmed Type Multivitamins, Thera [Multivitamin 1 tab PO DAILY 05/31/17 06/05/19 History (formulary)] Albuterol Inhaler [Ventolin Hfa 2 puff INHALATION RT-QID PRN 02/16/19 06/05/19 History Inhaler] Apixaban [Eliquis] 5 mg PO BID 02/16/19 06/05/19 History Baclofen [Lioresal] 10 mg PO HS 02/16/19 06/05/19 History Budesonide/Formoterol Fumarate 2 puff INHALATION RT-BID 02/16/19 06/05/19 History [Symbicort 160-4.5 Mcg Inhaler] Montelukast [Singulair] 10 mg PO DAILY 02/16/19 06/05/19 History Tamsulosin [Flomax] 0.4 mg PO DAILY 02/16/19 06/05/19 History Allergies Allergy/AdvReac Type Severity Reaction Status Date / Time doxycycline Allergy Rash/Hives Verified 06/05/19 08:05 loratadine [From Claritin] Allergy Rash/Hives Verified 06/05/19 08:05 Physical Examination HEENT: Normocephalic. Trachea is midline. Cardiovascular: Regular rate and rhythm. Pulmonary: No audible wheeze. Abdomen: Soft & nontender. Patient is obese. Musculoskeletal: The "splint" was removed (this was a foam-covered trauma splint from EMS, held on with gauze). There is moderate evolving ecchymosis on the anterolateral medial aspect of the proximal tibia. No abrasions or open wounds. No blisters. Mild to moderate edema throughout the leg and ankle. Appropriate bony tenderness to palpation. All compartments are soft and compressible. He is able to actively dorsiflex and plantarflex with minimal discomfort. Light touch sensation is subjectively intact throughout the right leg and symmetric to the contralateral side. Dorsalis pedis and posterior tibialis pulses are difficult to palpate secondary to the swelling but the foot is warm, dry and well-perfused. Both lower extremities show signs of chronic venous stasis. No pain at the hips with logroll bilaterally. Secondary survey reveals no gross long bone abnormalities or deformity. No tenderness to palpation or passive range of motion of the left lower extremity and bilateral upper extremities. Results X-rays and CT scan of the right leg were reviewed and interpreted from an orthopedic standpoint. These demonstrate transverse fractures of the tibia and fibula at the junction of the proximal and middle thirds. These are minimally displaced without significant comminution. A longitudinal split is noted extending into the tibial plateau between the intercondylar eminences. CT scan confirmed complete fracture extending 8 cm from the articular surface to within 2 cm of the shaft fracture. No significant articular step-off or joint depression. No gross malalignment of any of the fractures. X-rays of the right femur show a press-fit total hip arthroplasty with a cable around the metaphysis. No definitive periprosthetic fractures or evidence of subsidence but there is note of a subtle longitudinal lucency extending from the tip of the stem. - Labs Labs: Abnormal Lab Results - Last 24 Hours (Table) 06/05/19 06/05/19 Range/Units 04:54 04:54 RBC 4.29 L (4.30-5.90) m/uL Hgb 12.8 L (13.0-17.5) gm/dL Hct 37.6 L (39.0-53.0) % BUN 27 H (9-20) mg/dL Glucose 129 H (74-99) mg/dL H & H 06/05/19 Range/Units 04:54 Hgb 12.8 L (13.0-17.5) gm/dL Hct 37.6 L (39.0-53.0) % Coagulation 06/05/19 Range/Units 04:54 INR 0.9 (<1.2) Result Diagrams: 06/05/19 04:54 06/05/19 04:54 Assessment and Plan Assessment: 1. Minimally displaced fractures of the right tibia and fibular shafts with associated nondisplaced tibial plateau fracture (Schatzker variant) 2. History of chronic bacteremia and osteomyelitis 3. Obesity 4. Chronic back pain 5. Generalized deconditioning Plan: I discussed the diagnosis and radiographic findings with the patient and his daughter. We reviewed the imaging findings and fracture patterns. We discussed both operative and nonoperative treatment plans. All fractures are very well aligned. Even with surgical intervention, he would require extended periods of nonweightbearing. With his history of infections and osteomyelitis, I feel it is reasonable to consider nonoperative treatment. In addition, his multiple medical comorbidities put him at high risk for perioperative complications such as surgical site infection and wound healing problems. He would prefer to avoid surgical treatment if possible. The patient was placed in a long leg posterior sugartong splint. He was advised to aggressively ice and elevate the leg to decrease pain and swelling. We discussed the possibility of compartment syndrome and symptoms to watch for. The patient will be admitted for observation and pain control. Discharge planning to evaluate placement options as he will be nonweightbearing on the right leg for at least 8 weeks. He is at high risk for soft tissue compromise due to his venous stasis and lower extremity edema so I would like to avoid casting if possible. Plan will be to maintain the splint for the next 7-14 days to allow the swelling to subside followed by transitioning to a custom made long leg splint. Questions were invited and answered. The patient expressed understanding and was in agreement with the proposed plan. Lazaro Doyle D.O. [facility]
[2019-06-05] MEDS: HYDROcodone/APAP 5-325MG 1 EACH TAB PO PRN ×2 (18:04→23:39)
[2019-06-06] MEDS: HYDROmorphone 1 MG/ML 1 ML SYRINGE IVP PRN ×3 (02:45→21:49)
[2019-06-06] MEDS: SODIUM CHLORIDE 0.9% 1,000 ML IV SCH (05:33)
[2019-06-06] MEDS: HYDROcodone/APAP 5-325MG 1 EACH TAB PO PRN ×2 (08:57→17:01)
[2019-06-06] MEDS: FAMOTIDINE 20 MG TAB PO SCH ×2 (08:58→21:39)
[2019-06-06] MEDS ORDERED: ALBUTEROL NEBULIZED 2.5 MG/3 ML INHALATION PRN (09:41)
[2019-06-06] MEDS: APIXABAN 5 MG TAB PO SCH ×2 (11:27→21:39)
[2019-06-06] MEDS: MONTELUKAST 10 MG TAB PO SCH (11:27)
[2019-06-06] MEDS: TAMSULOSIN 0.4 MG CAP.ER.24H PO SCH (11:27)
--- NOTE | 2019-06-06 11:56 | P.PN ---
Subjective Progress Note Date: 06/06/19 The patient was seen and examined at the bedside. He states that the pain in the right leg is manageable and fairly well controlled. He normally takes baclofen for his chronic back pain and did not receive this last night and admits that he was quite uncomfortable, especially after being in bed for so l ezra. He denies any new areas of pain related to his fall. Objective - Vital Signs Vital signs: Vital Signs Temp 98.6 F 06/06/19 07:00 Pulse 86 06/06/19 07:00 Resp 16 06/06/19 07:00 BP 131/85 06/06/19 07:00 Pulse Ox 97 06/06/19 07:00 Intake & Output 06/05/19 06/06/19 06/06/19 18:59 06:59 18:59 Intake Total 1000 750 Output Total 200 1300 700 Balance 800 -550 -700 Intake: Intake, IV Titration 1000 750 Amount Sodium Chloride 0.9% 1, 1000 750 000 ml @ 125 mls/hr IV . Q8H [facility] Rx#:[id number] Output: Urine 200 1300 700 Other: Voiding Method Toilet # Voids 2 1 - Exam The patient is lying supine in bed. He appears in no acute distress. Normal respiratory effort without conversational dyspnea or use of accessory muscles. The splint is in place and appears well fitting. The leg is only elevated on a single thin pillow. Mild interval increase in the edema around the fracture site but the compartments are still soft and compressible. No fracture blisters. Appropriate tenderness to palpation. Light touch sensation still intact distally he is able to wiggle his toes without pain. Secondary survey reveals no tenderness to palpation around the left ankle, leg or femur. - Labs CBC & Chem 7: 06/05/19 04:54 06/05/19 04:54 Assessment and Plan Assessment: 1. Minimally displaced fractures of the right tibia and fibular shafts with associated nondisplaced tibial plateau fracture (Schatzker variant) 2. History of chronic bacteremia and osteomyelitis with previous surgical debridements/resection 3. Peripheral vascular disease 4. Obesity 5. Chronic back pain 6. Generalized deconditioning Plan: The patient is doing well. We will resume the patient's home medications. There is still some risk of increased bleeding, we will continue him on the Eliquis for DVT prophylaxis, given that he will have limited mobility for the several weeks. He will definitely require placement in a subacute care facility to do his mobility restrictions and increased personal care needs. Discharge planning in progress. Plan will be to maintain the splint for the next 10-14 days to allow the swelling to subside followed by transitioning to a custom, removable long leg splint: well-padded, likely thermoplastic, with the knee in 30-40 degrees of flexion and the ankle in neutral. PT/OT eval for mobilization. Okay to ambulate as tolerated with walker and 2 person standby assist, maintaining nonweightbearing status on the right leg. Okay to rest the splint on the ground while ambulating or in the chair but otherwise continue icing and elevating as much as possible. If the swelling remains stable and he shows no signs of evolving compartment syndrome, I anticipate he will be ready for discharge tomorrow. Continue as needed pain management. Lazaro Doyle D.O. [facility]
[2019-06-06 16:50] LABS: Appearance,Urine Cloudy (Clear); Bacteria,Urine Moderate /hpf; Bilirubin,Urine Negative (Negative); Blood,Urine Trace (Negative); Color,Urine Light Yellow; Glucose,Urine (UA) Negative (Negative); Ketones,Urine Negative (Negative); Leukocyte Esterase,Urine Large (Negative); Mucus,Urine Rare /hpf; Nitrite,Urine Positive (Negative); Protein,Urine Trace (Negative); RBC,Urine 1 /hpf (0-5); Specific Gravity,Urine 1.011 (1.001-1.035); Squamous Epithelial Cell,Urine 1 /hpf (0-4); Urobilinogen,Urine <2.0 mg/dL (<2.0); WBC,Urine 45 /hpf (0-5)
[2019-06-06] MEDS: SYMBICORT 160-4.5 MCG INHALER INHALATION SCH (20:08)
[2019-06-06] MEDS: BACLOFEN 10 MG TAB PO SCH (21:39)
[2019-06-07] MEDS: HYDROmorphone 1 MG/ML 1 ML SYRINGE IVP PRN ×4 (02:50→22:05)
[2019-06-07] MEDS: APIXABAN 5 MG TAB PO SCH ×2 (07:44→22:05)
[2019-06-07] MEDS: MONTELUKAST 10 MG TAB PO SCH (07:44)
[2019-06-07] MEDS: FAMOTIDINE 20 MG TAB PO SCH ×2 (07:44→22:05)
[2019-06-07] MEDS: TAMSULOSIN 0.4 MG CAP.ER.24H PO SCH (07:44)
--- NOTE | 2019-06-07 07:47 | P.PN ---
Subjective Progress Note Date: 06/07/19 Patient was seen and examined at the bedside. He states the pain level has improved and he slept on her last night. He feels the swelling may have decreased somewhat and is able to wiggle his toes better. He was able to get up to the bedside and into the chair but had quite a bit of difficulty mobilizing. Objective - Vital Signs Vital signs: Vital Signs Temp 98.4 F 06/07/19 07:39 Pulse 77 06/07/19 07:39 Resp 16 06/07/19 07:39 BP 146/92 06/07/19 07:39 Pulse Ox 95 06/07/19 07:39 Intake & Output 06/06/19 06/07/19 06/07/19 18:59 06:59 18:59 Intake Total 100 Output Total 1000 300 Balance -900 -300 Intake: Oral 100 Output: Urine 1000 300 Other: Voiding Method Toilet # Voids 1 200 - Exam The patient is lying supine in bed. He appears in no acute distress. The splint is in place and appears well fitting. The leg is again only elevated on a single thin pillow. No significant interval change in the edema in the leg. No fracture blisters or visible wounds. Appropriate tenderness to palpation. Anterior compartments are soft and compressible. Light touch sensation intact distally and he moves his toes without ease. - Labs CBC & Chem 7: 06/05/19 04:54 06/05/19 04:54 Labs: Abnormal Lab Results - Last 24 Hours (Table) 06/06/19 Range/Units 16:30 Urine Protein Trace H (Negative) Urine Blood Trace H (Negative) Ur Leukocyte Esterase Large H (Negative) Urine WBC 45 H (0-5) /hpf Urine WBC Clumps Few H (None) /hpf Urine Bacteria Moderate H (None) /hpf Urine Mucus Rare H (None) /hpf Assessment and Plan Assessment: 1. Minimally displaced fractures of the right tibia and fibular shafts with associated nondisplaced tibial plateau fracture (Schatzker variant) 2. History of chronic bacteremia and osteomyelitis with previous surgical debridements/resection 3. Peripheral vascular disease 4. Obesity 5. Chronic back pain 6. Generalized deconditioning Plan: We again discussed the relative risks and benefits of surgery versus nonoperative treatment. Performing a minimally invasive submuscular plating would afford better stabilization of the fractures to allow easier mobilization without the need for bulky splinting or bracing. While he still is at higher risk for infection and wound complications, this would likely afford him much better quality of life as the fracture heal and ideally minimize other complications, such as pressure ulcers and further deconditioning. I recommended continued observation of the swelling as this would not likely be ready for any operative consideration for at least a week to 10 days. We will transfer him to rehab this is placement arrangements have been finalized and I will see him outpatient in 7-10 days to reevaluate the soft tissue and make definitive treatment plan at that time. He expressed understanding and was in agreement with this plan.
[2019-06-07] MEDS: SYMBICORT 160-4.5 MCG INHALER INHALATION SCH ×2 (07:52→20:22)
--- NOTE | 2019-06-07 09:08 | P.DS ---
Providers Date of admission: 06/06/19 10:05 Expected date of discharge: 06/07/19 Attending physician: Lazaro Doyle DO Consults: 06/06/19 16:07 Consult Physician Routine Consulting Provider: Nicolas Baez Consult Reason/Comments: clip toe nails onchomycosis Do you want consulting provider notified?: Yes Primary care physician: Reno Vargas - Discharge Diagnosis(es) (1) Closed fracture of shaft of right tibia and fibula Current Visit: Yes Status: Acute (2) Fracture of right tibial plateau Current Visit: Yes Status: Acute Hospital Course: The patient was admitted through the emergency department after a ground level fall which resulted in fractures of the right tibia and fibular shafts with extension of the tibial plateau. He was admitted for observation, pain control and placement. His hospital course was uneventful. At this time, his pain is well-controlled on oral medications. The swelling appears stable. His neurovascular exam shows intact sensation and gross motor function. He is deemed stable for discharge Patient Condition at Discharge: Stable Plan - Discharge Summary Discharge Rx Participant: No New Discharge Prescriptions: New Enoxaparin Sodium [Lovenox] 30 mg SQ DAILY #30 syringe HYDROcodone/APAP 5-325MG [Hindman 5] 1 - 2 each PO Q4-6H PRN #60 tab PRN Reason: Pain Continue Tamsulosin [Flomax] 0.4 mg PO DAILY Montelukast [Singulair] 10 mg PO DAILY Budesonide/Formoterol Fumarate [Symbicort 160-4.5 Mcg Inhaler] 2 puff INHALATION RT-BID Baclofen [Lioresal] 10 mg PO HS Albuterol Inhaler [Ventolin Hfa Inhaler] 2 puff INHALATION RT-QID PRN PRN Reason: Shortness Of Breath Discontinued Multivitamins, Thera [Multivitamin (formulary)] 1 tab PO DAILY Apixaban [Eliquis] 5 mg PO BID Discharge Medication List Albuterol Inhaler [Ventolin Hfa Inhaler] 2 puff INHALATION RT-QID PRN 02/16/19 [History] Baclofen [Lioresal] 10 mg PO HS 02/16/19 [History] Budesonide/Formoterol Fumarate [Symbicort 160-4.5 Mcg Inhaler] 2 puff INHALATION RT-BID 02/16/19 [History] Montelukast [Singulair] 10 mg PO DAILY 02/16/19 [History] Tamsulosin [Flomax] 0.4 mg PO DAILY 02/16/19 [History] Enoxaparin Sodium [Lovenox] 30 mg SQ DAILY #30 syringe 06/07/19 [Rx] HYDROcodone/APAP 5-325MG [Hindman 5] 1 - 2 each PO Q4-6H PRN #60 tab 06/07/19 [Rx] Follow up Appointment(s)/Referral(s): Reno Vargas MD [Primary Care Provider] - 1 Week Lazaro Doyle DO [Medical Doctor] - 10 Days () Activity/Diet/Wound Care/Special Instructions: Keep splint in place at all times. Keep clean and dry. Ice and elevate the right leg as much as possible. Okay to ambulate as needed with a walker and to person assist. Okay to use at the splint that on the ground but no weightbearing on the right lower extremity. Stop Eliquis, start Lovenox 30 mg daily on 06/08/2019. Follow-up outpatient in approximately [address] Doyle. Call for appointment. Discharge Disposition: TRANSFER TO SNF/ECF
[2019-06-07] MEDS: HYDROcodone/APAP 5-325MG 1 EACH TAB PO PRN (16:46)
[2019-06-07] MEDS: BACLOFEN 10 MG TAB PO SCH (22:05)
--- NOTE | 2019-06-07 23:13 | P.CONS ---
History of Present Illness - Reason for Consult Consult date: 06/07/19 Medical management Requesting physician: Lazaro Gabriele Vivek - Chief Complaint Tibia fracture - History of Present Illness Consultation: This is a very pleasant 63-year-old patient of Dr. Reno Vargas. 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 Does use a walker to baseline to get about. Is a resident of [facility]. Patient around 3:00 in the morning on the day of presentation that is June 05 stumbled and fell with his legs folded under him. EMS was called to get him up any was unable to weight-bear on the right leg. Motor the ER. Was found to fracture of the proximal tibia and fibula. He not only uses a walker but oftentimes uses a wheelchair. Patient's had osteomyelitis in the past. Patient's [employer]AT [employer] IN[employer]ER shunt was infected in the past was revised in 2018. Patient's was seen by Dr. Gallagher from orthopedics. At this point the plan is to get the patient to rehab and bring him back for surge ry after swelling essential not in over a week's time. There is no chest pain no palpitation. Review of systems: GEN.: Tired EYES: None HEENT: None NECK: None RESPIRATORY: None CARDIOVASCULAR: None GASTROINTESTINAL: None GENITOURINARY: None MUSCULOSKELETAL: [As above LYMPHATICS: None HEMATOLOGICAL: None PSYCHIATRY: None NEUROLOGICAL: Contracture both the hands, uses a walker Past medical history to include: Syringomyelia causing hydrocephalus and a brain shunt. Asthma. BPH. Obstructive sleep apnea uses a BiPAP machine Social history: Lives at [facility]. Does use a walker. Does not smoke or drink alcohol. Physical examination: VITAL SIGNS: 98.3, 80, 18, 112/72, 94% room air GENERAL: BMI 39.2, laying in bed not in distress. EYES: Pupils equal. Conjunctiva james, exophthalmusl. HEENT: External appearance of nose and ears normal, oral cavity grossly normal. NECK: JVD not raised; masses not palpable. HEART: First and second heart sounds are normal; no edema. LUNGS: Respiratory rate normal; clear to auscultation. ABDOMEN: Soft, nontender, liver spleen not palpable, no masses palpable. PSYCH: Alert and oriented x3; mood and affect normal. NEUROLOGICAL: Cranial nerves grossly intact; no facial asymmetry, power and sensation grossly intact. LYMPHATICS: No lymph nodes palpable in the axilla and neck EXTREMITY: Dressing over the right leg with compression bandage INVESTIGATIONS, reviewed in the clinical context: White count 7.7 hemoglobin 12.8 platelets 204 potassium 4.1 bun 27 creatinine 0.99 UA positive for leukoesterase, WBC 1 squamous epithelial cells and bacteria positive Computed tomography scan of the tibia shows-comminuted nondisplaced fracture of the tibia including a transverse fracture including the fibula. Hemarthrosis Assessment: -Right proximal tibia-fibula fracture transfer secondary to fall -Right knee hemarthrosis secondary to trauma -Obesity BMI 39.2 -Chronic gait dysfunction uses a walker -Chronic syringomyelia causing hydrocephalus and has a [employer]AT [employer] shunt -Intermittent asthma -BPH -Obstructive sleep apnea, uses a BiPAP machine Plan: -Patient's home medications resumed. Pain medications per orthopedics. Patient to continue with BiPAP. It may be noted that patient is on atelectasis. 5 mg twice a day. Unsure about the same. We'll discuss with orthopedics. Care was discussed with the patient. Plan for him is to go to the rehab and return for surgery in about 10 days. Patient only DVT prophylaxis and will discuss this with orthopedics. Thank you Past Medical History Past Medical History: Asthma, Prostate Disorder, Sleep Apnea/CPAP/BIPAP Additional Past Medical History / Comment(s): Brain Shunt. Blood infection. osteomyelitis 2017 History of Any Multi-Drug Resistant Organisms: None Reported Year Discovered:: None MDRO Source:: None Past Surgical History: Back Surgery Additional Past Surgical History / Comment(s): Bilaretal hip replacements, discetomy and rt clavical removed d/t osteomyelits,shunt that has been placed for hydrocephalus "no longer patent", TIAN,cataracts. Past Anesthesia/Blood Transfusion Reactions: No Reported Reaction Past Psychological History: No Psychological Hx Reported Additional Psychological History / Comment(s): pt lives at [facility], uses a walker when up. Smoking Status: Never smoker Past Alcohol Use History: None Reported, Rare Past Drug Use History: None Reported - Past Family History Father Additional Family Medical History / Comment(s): FATHER OF BONE CANCER AT AGE OF 82 Mother Family Medical History: Dementia Additional Family Medical History / Comment(s): AT AGE 83 Medications and Allergies Home Medications Medication Instructions Recorded Confirmed Type Albuterol Inhaler [Ventolin Hfa 2 puff INHALATION RT-QID PRN 02/16/19 06/05/19 History Inhaler] Baclofen [Lioresal] 10 mg PO HS 02/16/19 06/05/19 History Budesonide/Formoterol Fumarate 2 puff INHALATION RT-BID 02/16/19 06/05/19 History [Symbicort 160-4.5 Mcg Inhaler] Montelukast [Singulair] 10 mg PO DAILY 02/16/19 06/05/19 History Tamsulosin [Flomax] 0.4 mg PO DAILY 02/16/19 06/05/19 History HYDROcodone/APAP 5-325MG [[place] 5] 1 - 2 each PO Q4-6H PRN #60 tab 06/07/19 Rx Allergies Allergy/AdvReac Type Severity Reaction Status Date / Time doxycycline Allergy Rash/Hives Verified 06/05/19 08:05 loratadine [From Claritin] Allergy Rash/Hives Verified 06/05/19 08:05 Physical Exam Vitals: Vital Signs Temp Pulse Resp BP Pulse Ox 06/07/19 15:45 98.3 F 80 18 112/72 94 L 06/07/19 07:39 98.4 F 77 16 146/92 95 06/07/19 04:41 18 06/07/19 02:10 98.4 F 72 18 121/82 97 06/07/19 00:26 76 20 Intake and Output 06/07/19 06/07/19 06/08/19 14:59 22:59 06:59 Intake Total 500 150 Output Total 400 Balance 500 -250 Intake: Oral 500 150 Output: Urine 400 Results CBC & Chem 7: 06/05/19 04:54 06/05/19 04:54
[2019-06-08] MEDS: HYDROcodone/APAP 5-325MG 1 EACH TAB PO PRN ×4 (02:03→22:32)
[2019-06-08] MEDS: SYMBICORT 160-4.5 MCG INHALER INHALATION SCH ×2 (07:17→21:06)
[2019-06-08] MEDS: FAMOTIDINE 20 MG TAB PO SCH ×2 (08:36→22:05)
[2019-06-08] MEDS: TAMSULOSIN 0.4 MG CAP.ER.24H PO SCH (08:36)
[2019-06-08] MEDS: APIXABAN 5 MG TAB PO SCH ×2 (08:36→22:03)
[2019-06-08] MEDS: MONTELUKAST 10 MG TAB PO SCH (08:36)
[2019-06-08] MEDS ORDERED: DIAZEPAM 5 MG TAB PO PRN (11:28)
--- NOTE | 2019-06-08 11:38 | P.PN ---
Subjective Progress Note Date: 06/08/19 The patient states he has been experiencing increasing spasms throughout the right hip and leg throughout the day. He feels the pain is overall well- controlled. He has noted some pain in the back of the heel, which he feels may be related to the splint Objective - Vital Signs Vital signs: Vital Signs Temp 98.0 F 06/08/19 07:00 Pulse 80 06/08/19 07:00 Resp 16 06/08/19 07:00 BP 129/83 06/08/19 07:00 Pulse Ox 95 06/08/19 07:00 Intake & Output 06/07/19 06/08/19 06/08/19 18:59 06:59 18:59 Intake Total 500 150 Output Total 400 800 Balance 100 -650 Intake: Oral 500 150 Output: Urine 400 800 Other: Voiding Method Toilet - Exam The patient is lying supine in bed. He appears in no acute distress. The splint is in place and in good condition. The Richard wrap was removed distally and the splint was loosened to evaluate the skin. There are no visible ulcerations on the heel around the ankle. ABDs were added for additional padding. Mild interval increase in the edema at the level of the fracture but again no blisters. No significant change in the ecchymosis. - Labs CBC & Chem 7: 06/05/19 04:54 06/05/19 04:54 Assessment and Plan Assessment: 1. Minimally displaced fractures of the right tibia and fibular shafts with associated nondisplaced tibial plateau fracture (Schatzker variant) 2. History of chronic bacteremia and osteomyelitis with previous surgical debridements/resection 3. Peripheral vascular disease 4. Obesity 5. Chronic back pain 6. Generalized deconditioning (1) Closed fracture of shaft of right tibia and fibula Current Visit: Yes Status: Acute Code(s): S82.201A - UNSP FRACTURE OF SHAFT OF RIGHT TIBIA, INIT FOR CLOS FX; S82.401A - UNSP FRACTURE OF SHAFT OF RIGHT FIBULA, INIT FOR CLOS FX SNOMED Code(s): 964072669 (2) Fracture of right tibial plateau Current Visit: Yes Status: Acute Code(s): S82.141A - DISPLACED BICONDYLAR FRACTURE OF RIGHT TIBIA, INIT SNOMED Code(s): 189342087 Plan: Based on the fracture pattern and his associated comorbidities, I still feel that nonoperative treatment is the best initial plan and he was in agreement with this. Continue PT/OT for mobilization and gait training. Continue aggressively icing and elevating the leg. Plan for discharge to rehab tomorrow. We will arrange for the brace which we will not be applied until swelling improves, likely in 10-14 days. Continue anticoagulation for DVT prophylaxis per internal medicine - appreciate their assistance and recommendations. We will try as needed by mouth Valium for the spasms that if this does not adequately control it, we can add in some baclofen during the day.
[2019-06-08] MEDS: HYDROmorphone 1 MG/ML 1 ML SYRINGE IVP PRN ×2 (14:52→20:04)
--- NOTE | 2019-06-08 20:05 | P.PN ---
Progress Note - Text Progress Note Date: 06/08/19 - Chief Complaint Tibia fracture - History of Present Illness Consultation: This is a very pleasant 63-year-old patient of Dr. Reno Vargas. 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 Does use a walker to baseline to get about. Is a resident of [facility]. Patient around 3:00 in the morning on the day of presentation that is June 05 stumbled and fell with his legs folded under him. EMS was called to get him up any was unable to weight-bear on the right leg. Motor the ER. Was found to fracture of the proximal tibia and fibula. He not only uses a walker but oftentimes uses a wheelchair. Patient's had osteomyelitis in the past. 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 Patient's was seen by Dr. Gallagher from orthopedics. At this point the plan is to get the patient to rehab and bring him back for surgery after swelling essential not in over a week's time. There is no chest pain no palpitation. Patient does take eliquis for a prior DVT. Today-laying in bed. Comfortable. No new issues. Review of systems: Was done for constitutional, cardiovascular, GI, pulmonary. relevant finding as above Active Medications Hydrocodone Bitart/Acetaminophen ([place] 5-325) 1 each PO Q4HR PRN PRN Reason: Pain Last Admin: 06/07/19 16:46 Dose: 1 each Documented by: Hydrocodone Bitart/Acetaminophen ([place] 5-325) 2 each PO Q4HR PRN PRN Reason: Pain Scale 7 to 10 Last Admin: 06/08/19 17:32 Dose: 2 each Documented by: Albuterol Sulfate (Ventolin Nebulized) 2.5 mg INHALATION RT-QID PRN PRN Reason: Shortness Of Breath Last Admin: 06/06/19 11:30 Dose: 2.5 mg Documented by: Apixaban (Eliquis) 5 mg PO BID [facility] Last Admin: 06/08/19 08:36 Dose: 5 mg Documented by: Baclofen (Lioresal) 10 mg PO HS [facility] Last Admin: 06/07/19 22:05 Dose: 10 mg Documented by: Budesonide/Formoterol Fumarate (Symbicort 160-4.5 Mcg Inhaler) 2 puff INHALATION RT-BID [facility] Last Admin: 06/08/19 07:17 Dose: 2 puff Documented by: Diazepam (Valium) 5 mg PO Q6H PRN PRN Reason: Spasms Last Admin: 06/08/19 12:14 Dose: 5 mg Documented by: Famotidine (Pepcid) 20 mg PO BID [facility] Last Admin: 06/08/19 08:36 Dose: 20 mg Documented by: Hydromorphone HCl (Dilaudid) 1 mg IVP Q3HR PRN PRN Reason: Severe Pain Last Admin: 06/08/19 14:52 Dose: 1 mg Documented by: Ceftriaxone Sodium 1 gm/ (Sodium Chloride) 50 mls @ 100 mls/hr IVPB Q24HR [facility] Last Admin: 06/08/19 11:54 Dose: 100 mls/hr Documented by: Montelukast Sodium (Singulair) 10 mg PO DAILY [facility] Last Admin: 06/08/19 08:36 Dose: 10 mg Documented by: Naloxone HCl (Narcan) 0.2 mg IV Q2M PRN PRN Reason: Opioid Reversal Ondansetron HCl (Zofran) 4 mg IVP Q8HR PRN PRN Reason: Nausea And Vomiting Tamsulosin HCl (Flomax) 0.4 mg PO DAILY [facility] Last Admin: 06/08/19 08:36 Dose: 0.4 mg Documented by: Physical examination: VITAL SIGNS: 98, 80, 16, 129/83, 95% room air GENERAL: Laying in bed, awake EYES: Pupils equal. Conjunctiva james, exophthalmusl. HEENT: External appearance of nose and ears normal, oral cavity grossly normal. NECK: JVD not raised; masses not palpable. HEART: First and second heart sounds are normal; no edema. LUNGS: Respiratory rate normal; clear to auscultation. ABDOMEN: Soft, nontender, liver spleen not palpable, no masses palpable. PSYCH: Alert and oriented x3; mood and affect normal. NEUROLOGICAL: Cranial nerves grossly intact; no facial asymmetry, power and sensation grossly intact. LYMPHATICS: No lymph nodes palpable in the axilla and neck EXTREMITY: Dressing over the right leg with compression bandage INVESTIGATIONS, reviewed in the clinical context: White count 7.7 hemoglobin 12.8 platelets 204 potassium 4.1 bun 27 creatinine 0.99 UA positive for leukoesterase, WBC 1 squamous epithelial cells and bacteria positive Computed tomography scan of the tibia shows-comminuted nondisplaced fracture of the tibia including a transverse fracture including the fibula. 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 Lazaro Gallagher from orthopedics. He's thinking more lives of conservative management as opposed to surgical intervention. Patient will still needs rehab. We will. The patient on eliquis. Patient is on ceftriaxone for the UTI. We'll switch to Ceftin in 24 hours. Care was discussed with the patient at length. Questions were answered. Thank you
[2019-06-08] MEDS: BACLOFEN 10 MG TAB PO SCH (22:03)
[2019-06-09] MEDS: FAMOTIDINE 20 MG TAB PO SCH (08:04)
[2019-06-09] MEDS: MONTELUKAST 10 MG TAB PO SCH (08:04)
[2019-06-09] MEDS: APIXABAN 5 MG TAB PO SCH (08:04)
[2019-06-09] MEDS: TAMSULOSIN 0.4 MG CAP.ER.24H PO SCH (08:05)
[2019-06-09] MEDS: HYDROmorphone 1 MG/ML 1 ML SYRINGE IVP PRN (08:06)
[2019-06-09] MEDS: SYMBICORT 160-4.5 MCG INHALER INHALATION SCH (08:57)
[2019-06-09] MEDS ORDERED: BACLOFEN 10 MG TAB PO PRN (09:42)
[2019-06-09 09:52] VITALS: BP 137/89; PULSE 84; RESP 17; TEMP 99.3
[2019-06-09] MEDS ORDERED: ERGOCALCIFEROL 50,000 UNIT CAP PO SCH (10:00)
--- NOTE | 2019-06-09 10:03 | P.DS ---
Providers Date of admission: 06/06/19 10:05 Expected date of discharge: 06/09/19 Attending physician: Lazaro Doyle DO Consults: 06/06/19 16:07 Consult Physician Routine Consulting Provider: Nicolas Baez Consult Reason/Comments: clip toe nails onchomycosis Do you want consulting provider notified?: Yes 06/07/19 10:14 Consult Physician Routine Consulting Provider: Marc Dorado Consult Reason/Comments: Aanticoagulation management--would like to hold eliquis for surgery Do you want consulting provider notified?: Yes Primary care physician: Reno Vargas - Discharge Diagnosis(es) (1) Closed fracture of shaft of right tibia and fibula Current Visit: Yes Status: Acute (2) Fracture of right tibial plateau Current Visit: Yes Status: Acute (3) UTI (urinary tract infection) Current Visit: Yes Status: Acute (4) Vitamin D insufficiency Current Visit: Yes Status: Acute (5) Obesity (BMI 30-39.9) Current Visit: Yes Status: Acute Hospital Course: The patient is a pleasant 63-year-old male who was admitted to the emergency department after a ground level fall sustained when getting up to go to the bathroom. He resides at [facility]. He was brought to the emergency department at [facility] where x-rays demonstrated fractures of the right tibial and fibular shafts with intra-articular extension the tibial plateau. A long-leg posterior sugartong splint was applied and the patient was admitted for pain control, monitoring for compartment syndrome and placement. He was found to have a urinary tract infection and was placed on antibiotics. He worked with physical and occupational therapy and was found to have significant limitations in functional ability. He struggles with transfers and requires 2 person assist. He is nonweightbearing on the right lower extremity for at least the next 8 weeks. At this time, his pain is well-controlled, his vital signs are stable. He shows no signs of compartment syndrome. Neurovascular exam shows intact sensation gross motor function to the right lower extremity. He is deemed stable for discharge to rehab. Patient Condition at Discharge: Stable Plan - Discharge Summary Discharge Rx Participant: No New Discharge Prescriptions: New HYDROcodone/APAP 5-325MG [[place] 5] 1 - 2 each PO Q4-6H PRN #60 tab PRN Reason: Pain Apixaban [Eliquis] 5 mg PO BID tab Continue Tamsulosin [Flomax] 0.4 mg PO DAILY Montelukast [Singulair] 10 mg PO DAILY Budesonide/Formoterol Fumarate [Symbicort 160-4.5 Mcg Inhaler] 2 puff INHALATION RT-BID Baclofen [Lioresal] 10 mg PO HS Albuterol Inhaler [Ventolin Hfa Inhaler] 2 puff INHALATION RT-QID PRN PRN Reason: Shortness Of Breath Discontinued Multivitamins, Thera [Multivitamin (formulary)] 1 tab PO DAILY Apixaban [Eliquis] 5 mg PO BID Discharge Medication List Albuterol Inhaler [Ventolin Hfa Inhaler] 2 puff INHALATION RT-QID PRN 02/16/19 [History] Baclofen [Lioresal] 10 mg PO HS 02/16/19 [History] Budesonide/Formoterol Fumarate [Symbicort 160-4.5 Mcg Inhaler] 2 puff INHALATION RT-BID 02/16/19 [History] Montelukast [Singulair] 10 mg PO DAILY 02/16/19 [History] Tamsulosin [Flomax] 0.4 mg PO DAILY 02/16/19 [History] HYDROcodone/APAP 5-325MG [[place] 5] 1 - 2 each PO Q4-6H PRN #60 tab 06/07/19 [Rx] Apixaban [Eliquis] 5 mg PO BID tab 06/09/19 [Rx] Follow up Appointment(s)/Referral(s): Reno Vargas MD [Primary Care Provider] - 1 Week Lazaro Doyle DO [Medical Doctor] - 10 Days () Activity/Diet/Wound Care/Special Instructions: The splint must remain in place at all times. Keep clean and dry. The outer Richard wrap may be loosened or removed to check the skin and padding may be inserted as needed but the splint itself must remain in place at all times. Do not allow to heel to rest on the bed. Ice and elevate the right leg as much as possible. When positioned correctly, the foot should be higher than the knee. Okay to ambulate as needed with a walker and to person assist. Okay to rest the splint on the ground but no weightbearing on the right lower extremity. Up to chair ad bhavya with assist. Continue PRN norco for pain and PRN baclofen for spasms. Continue Eliquis for DVT prophylaxis Follow-up outpatient in approximately [address] Doyle. Call for appointment. Discharge Disposition: TRANSFER TO SNF/ECF
--- NOTE | 2019-06-09 10:12 | P.PN ---
Subjective Progress Note Date: 06/09/19 Patient was seen and examined. He states the pain in the leg is stable and fairly well-controlled but the back pain is more bothersome. The Valium made him "loopy". He is having difficulty mobilizing and even just getting up to the chair, even with 2 person assist. Objective - Vital Signs Vital signs: Vital Signs Temp 99.3 F 06/09/19 07:00 Pulse 84 06/09/19 07:00 Resp 17 06/09/19 07:00 BP 137/89 06/09/19 07:00 Pulse Ox 95 06/09/19 07:00 Intake & Output 06/08/19 06/09/19 06/09/19 18:59 06:59 18:59 Intake Total 100 222 Output Total 700 575 Balance -600 -575 222 Intake: Intake, IV Titration 100 Amount cefTRIAXone 1 gm In 100 Sodium Chloride 0.9% 50 ml @ 100 mls/hr IVPB Q24HR [facility] Rx#:[id number] Oral 222 Output: Urine 700 575 Other: Voiding Method Toilet - Exam The patient is lying supine in bed. He appears in no acute distress. The splint is in place and in good condition. The edema at the fracture sites appears stable with evolving ecchymosis but no blisters. Anterior compartment is edematous but soft and appropriately tender to palpation. Intact light touch sensation distally and able to wiggle his toes without difficulty. Foot is warm and well-perfused. - Labs CBC & Chem 7: 06/05/19 04:54 06/05/19 04:54 Labs: Abnormal Lab Results - Last 24 Hours (Table) 06/05/19 Range/Units 04:54 Vitamin D 25-Hydroxy 21.8 L (30.0-100.0) ng/mL Assessment and Plan Assessment: 1. Minimally displaced fractures of the right tibia and fibular shafts with associated nondisplaced tibial plateau fracture (Schatzker variant) 2. UTI - on ceftriaxone 3. Vitamin D insufficiency 4. History of chronic bacteremia and osteomyelitis with previous surgical d ebridements/resection 4. Obesity 5. Chronic back pain 6. Peripheral vascular disease 7. Generalized deconditioning (1) Closed fracture of shaft of right tibia and fibula Current Visit: Yes Status: Acute Code(s): S82.201A - UNSP FRACTURE OF SHAFT OF RIGHT TIBIA, INIT FOR CLOS FX; S82.401A - UNSP FRACTURE OF SHAFT OF RIGHT FIBULA, INIT FOR CLOS FX SNOMED Code(s): 320049834 (2) Fracture of right tibial plateau Current Visit: Yes Status: Acute Code(s): S82.141A - DISPLACED BICONDYLAR FRACTURE OF RIGHT TIBIA, INIT SNOMED Code(s): 369402444 (3) UTI (urinary tract infection) Current Visit: Yes Status: Acute Code(s): N39.0 - URINARY TRACT INFECTION, SITE NOT SPECIFIED SNOMED Code(s): 34130682 (4) Vitamin D insufficiency Current Visit: Yes Status: Acute Code(s): E55.9 - VITAMIN D DEFICIENCY, UNSPECIFIED SNOMED Code(s): 20699102 (5) Obesity (BMI 30-39.9) Current Visit: Yes Status: Acute Code(s): E66.9 - OBESITY, UNSPECIFIED SNOMED Code(s): 930616184 Plan: I discussed the clinical findings with the patient. The edema around the fracture appears stable. His pain control is improving. I encouraged him to continue mobilizing as able with assist. Plan for discharge today to rehab. He is to follow-up with me outpatient approximately 10 days for reevaluation, repeat x-rays and placement of a new splint/fracture brace.
[2019-06-09] MEDS: HYDROcodone/APAP 5-325MG 1 EACH TAB PO PRN (10:13)
[2019-06-09] MEDS ORDERED: CALCIUM CARBONATE 500 MG CHEWABLE PO SCH (16:00)
[2019-06-09] MEDS ORDERED: CEFDINIR 300 MG CAP PO SCH (21:00)
--- NOTE | 2019-06-10 09:06 | ED ---
Extremity Problem HPI - General Chief complaint: Fall Stated complaint: Fall, leg injury Time Seen by Provider: 06/05/19 04:37 Source: patient, EMS Limitations: physical limitation - History of Present Illness Initial comments: This patient is 63-year-old man who presents to be evaluated for right lower extremity injury. The patient had been attempting to walk into his bathroom and states that he tripped on the door threshold. He fell injuring his right lower leg. EMS was activated by his left alert. Patient denies previous injury to that leg. No weakness or numbness. MD Complaint: extremity pain, extremity swelling -: minutes(s) Location: right, lower extremity History of Same: No Radiation: none Quality: sharp Consistency: constant Improves with: nothing Worsens with: palpation Associated Symptoms: denies other symptoms - Related Data Home Medications Medication Instructions Recorded Confirmed Albuterol Inhaler [Ventolin Hfa 2 puff INHALATION RT-QID PRN 02/16/19 06/05/19 Inhaler] Baclofen [Lioresal] 10 mg PO HS 02/16/19 06/05/19 Budesonide/Formoterol Fumarate 2 puff INHALATION RT-BID 02/16/19 06/05/19 [Symbicort 160-4.5 Mcg Inhaler] Montelukast [Singulair] 10 mg PO DAILY 02/16/19 06/05/19 Tamsulosin [Flomax] 0.4 mg PO DAILY 02/16/19 06/05/19 Previous Rx's Medication Instructions Recorded HYDROcodone/APAP 5-325MG [Gypsy 5] 1 - 2 each PO Q4-6H PRN #60 tab 06/07/19 Apixaban [Eliquis] 5 mg PO BID tab 06/09/19 Allergies Allergy/AdvReac Type Severity Reaction Status Date / Time doxycycline Allergy Rash/Hives Verified 06/05/19 08:05 loratadine [From Claritin] Allergy Rash/Hives Verified 06/05/19 08:05 Review of Systems ROS Statement: Those systems with pertinent positive or pertinent negative responses have been documented in the HPI. ROS Other: All systems not noted in ROS Statement are negative. Constitutional: Denies: fever, weakness Respiratory: Denies: cough, dyspnea Cardiovascular: Denies: chest pain, palpitations, syncope Gastrointestinal: Denies: abdominal pain, vomiting, diarrhea Musculoskeletal: Reports: as per HPI, arthralgia Skin: Denies: rash, lesions Neurological: Denies: headache, weakness, numbness, paresthesias Hematological/Lymphatic: Denies: easy bleeding Past Medical History Past Medical History: Asthma, Prostate Disorder, Sleep Apnea/CPAP/BIPAP Additional Past Medical History / Comment(s): Brain Shunt. Blood infection. osteomyelitis 2017 History of Any Multi-Drug Resistant Organisms: None Reported Date of last positivie culture/infection: None MDRO Source:: None Past Surgical History: Back Surgery Additional Past Surgical History / Comment(s): Bilaretal hip replacements, di scetomy and rt clavical removed d/t osteomyelits,shunt that has been placed for hydrocephalus "no longer patent", TIAN,cataracts. Past Anesthesia/Blood Transfusion Reactions: No Reported Reaction Past Psychological History: No Psychological Hx Reported Additional Psychological History / Comment(s): pt lives at [facility], uses a walker when up. Smoking Status: Never smoker Past Alcohol Use History: None Reported, Rare Past Drug Use History: None Reported - Past Family History Father Additional Family Medical History / Comment(s): FATHER OF BONE CANCER AT AGE OF 82 Mother Family Medical History: Dementia Additional Family Medical History / Comment(s): AT AGE 83 General Exam Limitations: physical limitation General appearance: alert, in no apparent distress Head exam: Present: atraumatic, normocephalic Eye exam: Present: normal appearance. Absent: scleral icterus, conjunctival injection ENT exam: Present: normal oropharynx Neck exam: Present: normal inspection, full ROM. Absent: tenderness Respiratory exam: Present: normal lung sounds bilaterally. Absent: respiratory distress, wheezes, rales, rhonchi, stridor, chest wall tenderness Cardiovascular Exam: Present: regular rate, normal rhythm, normal heart sounds. Absent: systolic murmur, diastolic murmur, rubs, gallop GI/Abdominal exam: Present: soft. Absent: distended, tenderness, guarding, rebound, rigid, mass Extremities exam: Present: tenderness, normal capillary refill, other (The patient has tenderness and swelling just distal to the right knee. There is EMS splint. He does not tolerate any attempts at range of motion near the knee.). Absent: full ROM, pedal edema, calf tenderness Right Hip exam: Present: normal inspection, full ROM. Absent: tenderness, swelling, abrasion Upper Leg exam: Present: normal inspection, full ROM. Absent: tenderness, swelling Knee exam: Present: tenderness, swelling. Absent: full ROM, abrasion, laceration, ecchymosis, deformity, crepitus, dislocation, erythema, effusion Lower Leg exam: Present: tenderness, swelling. Absent: full ROM, abrasion, laceration, ecchymosis Ankle exam: Present: normal inspection, full ROM. Absent: tenderness, swelling Foot/Toe exam: Present: normal inspection, full ROM. Absent: tenderness, swelling Neurovascular tendon exam: Present: no vascular compromise. Absent: pulse deficit, abnormal cap refill, motor deficit, sensory deficit, tendon deficit Gait: unable to bear weight Back exam: Present: normal inspection. Absent: vertebral tenderness Neurological exam: Present: alert. Absent: motor sensory deficit Skin exam: Present: warm, dry, intact, normal color. Absent: rash Course Vital Signs 06/05/19 06/05/19 04:24 06:19 Temperature 98.2 F 97.6 F Pulse Rate 85 83 Respiratory 22 18 Rate Blood Pressure 169/116 124/80 O2 Sat by Pulse 100 98 Oximetry Medical Decision Making - Medical Decision Making Patient's 63-year-old man with fracture of the right-sided tib-fib just distal to the knee. Patient is placed in knee immobilizer and case discussed with orthopedics who will admit to observe overnight injuring that compartment syndrome does not develop. - Lab Data Result diagrams: 06/05/19 04:54 06/05/19 04:54 Lab Results 06/05/19 06/05/19 06/05/19 Range/Units 04:54 04:54 04:54 WBC 7.7 (3.8-10.6) k/uL RBC 4.29 L (4.30-5.90) m/uL Hgb 12.8 L (13.0-17.5) gm/dL Hct 37.6 L (39.0-53.0) % MCV 87.7 (80.0-100.0) fL MCH 29.7 (25.0-35.0) pg MCHC 33.9 (31.0-37.0) g/dL RDW 13.8 (11.5-15.5) % Plt Count 204 (150-450) k/uL Neutrophils % 75 % Lymphocytes % 17 % Monocytes % 5 % Eosinophils % 1 % Basophils % 1 % Neutrophils # 5.7 (1.3-7.7) k/uL Lymphocytes # 1.3 (1.0-4.8) k/uL Monocytes # 0.4 (0-1.0) k/uL Eosinophils # 0.1 (0-0.7) k/uL Basophils # 0.1 (0-0.2) k/uL PT 10.0 (9.0-12.0) sec INR 0.9 (<1.2) APTT 22.2 (22.0-30.0) sec Sodium 141 (137-145) mmol/L Potassium 4.1 (3.5-5.1) mmol/L Chloride 106 (98-107) mmol/L Carbon Dioxide 25 (22-30) mmol/L Anion Gap 10 mmol/L BUN 27 H (9-20) mg/dL Creatinine 0.99 (0.66-1.25) mg/dL Est GFR (CKD-EPI)AfAm >90 (>60 ml/min/1.73 sqM) Est GFR (CKD-EPI)NonAf 82 (>60 ml/min/1.73 sqM) Glucose 129 H (74-99) mg/dL Calcium 9.5 (8.4-10.2) mg/dL Vitamin D 25-Hydroxy (30.0-100.0) ng/mL 06/05/19 Range/Units 04:54 WBC (3.8-10.6) k/uL RBC (4.30-5.90) m/uL Hgb (13.0-17.5) gm/dL Hct (39.0-53.0) % MCV (80.0-100.0) fL MCH (25.0-35.0) pg MCHC (31.0-37.0) g/dL RDW (11.5-15.5) % Plt Count (150-450) k/uL Neutrophils % % Lymphocytes % % Monocytes % % Eosinophils % % Basophils % % Neutrophils # (1.3-7.7) k/uL Lymphocytes # (1.0-4.8) k/uL Monocytes # (0-1.0) k/uL Eosinophils # (0-0.7) k/uL Basophils # (0-0.2) k/uL PT (9.0-12.0) sec INR (<1.2) APTT (22.0-30.0) sec Sodium (137-145) mmol/L Potassium (3.5-5.1) mmol/L Chloride (98-107) mmol/L Carbon Dioxide (22-30) mmol/L Anion Gap mmol/L BUN (9-20) mg/dL Creatinine (0.66-1.25) mg/dL Est GFR (CKD-EPI)AfAm (>60 ml/min/1.73 sqM) Est GFR (CKD-EPI)NonAf (>60 ml/min/1.73 sqM) Glucose (74-99) mg/dL Calcium (8.4-10.2) mg/dL Vitamin D 25-Hydroxy 21.8 L (30.0-100.0) ng/mL Disposition Clinical Impression: Fall, Closed fracture of shaft of right tibia and fibula Disposition: ADMITTED IP TO THIS [facility] Condition: Stable
--- NOTE | 2019-06-11 21:00 | PN ---
PROGRESS NOTE This patient was discharged prior to me being able to perform the consultation. VÍCTOR / WESTN: [id number] /
== END 2019-06-09 11:00 | DRG 563 ==
LOC: EC 04:17 → 4SSUR 06:00 → OBSVTOIN 06-06 10:05
PROVIDERS: ADMIT Orthopaedic Surgery; ATTEND Orthopaedic Surgery
DX: S82.144A Nondisplaced bicondylar fracture of right tibia, initial encounter for closed fracture (principal); G91.9 Hydrocephalus, unspecified; G95.0 Syringomyelia and syringobulbia; N39.0 Urinary tract infection, site not specified; S82.451A Displaced comminuted fracture of shaft of right fibula, initial encounter for closed fracture; E55.9 Vitamin D deficiency, unspecified; E66.9 Obesity, unspecified; G47.33 Obstructive sleep apnea (adult) (pediatric); W01.0XXA Fall on same level from slipping, tripping and stumbling without subsequent striking against object, initial encounter; J45.20 Mild intermittent asthma, uncomplicated; Z96.643 Presence of artificial hip joint, bilateral; G89.29 Other chronic pain; I73.9 Peripheral vascular disease, unspecified; W01.198A Fall on same level from slipping, tripping and stumbling with subsequent striking against other object, initial encounter; Y93.89 Activity, other specified; Y92.009 Unspecified place in unspecified non-institutional (private) residence as the place of occurrence of the external cause; I87.8 Other specified disorders of veins; N40.0 Benign prostatic hyperplasia without lower urinary tract symptoms; Z79.51 Long term (current) use of inhaled steroids; Z79.01 Long term (current) use of anticoagulants; Z68.39 Body mass index [BMI] 39.0-39.9, adult; Z79.899 Other long term (current) drug therapy; Z86.718 Personal history of other venous thrombosis and embolism; Z87.440 Personal history of urinary (tract) infections; Z98.2 Presence of cerebrospinal fluid drainage device
CPT/HCPCS: 36415; 80048; 81001; 82306; 85025; 85610; 85730; 94640; 96374; 96376; 99285